=== PATIENT | female | born 1940 | race Caucasian/White ===

== ENCOUNTER 2017-10-16 12:15 | Emergency (ER) | payer MEDICARE ==
[~2017-10-16] VITALS: Ht 167.6 cm; Wt 85.7 kg
[~2017-10-16 12:15] MED LIST: ABILIFY5 MG PO; ACTONEL5 MG PO; ADULT ASPIRIN81 MG PO; ALENDRONATE SOD70 MG PO; AMBIEN10 MG PO; ASCORBIC ACID500 MG PO; ASPIR 8181 MG PO; Apixaban PO; CLINDAMYCIN HC150 MG PO; COENZYME Q1010 MG PO; DETROL LA2 MG PO; DETROL LA4 MG PO; DEXTROSE 50%-WA50 M1 IV; DHEA25 MG PO; DIPHENHYDR50 MG/1 M1 IV; ESIDRIX25 MG PO; ESTRADIOL1 MG PO; FAMOTIDINE20 MG PO; FEOSOL325 MG PO; HUMULIN R100 UNIT/2 SQ; HYDRALAZIN20 MG/1 ML IV; HYDROCHLOROTH12.5 MG PO; LASIX40 MG PO; LEVOTHYROXINE112 MCG PO; LISINOPRIL10 MG PO; MULTIVITAMINS1 EAC7 PO; Multivitamins/Minerals PO; ONDANSETRON4 MG/2 M1 IV; PANTOPRAZOLE SO40 MG PO; PRAVASTATIN SOD40 MG PO; PROGESTERONE100 MG PO; PROMETHAZINE HC25 M1 PO; PROTONIX40 MG/ML PO; QUETIAPINE FUMA25 MG PO; SEROQUEL25 MG PO; SERTRALINE HCL100 MG PO; SIMCOR 1,000-21 EACH PO; SIMVASTATIN20 MG PO; SODIUM BICARBO650 MG PO; TESSALON PERLE100 MG PO; TOLTERODINE TART2 MG PO; VITAMIN D1000 UNI1 PO; Z.0.DETROL LA4 MG PO; Z.0.ZOLOFT100 MG PO; Z.1.LISINOPRIL-HCT1 PO; ZOLOFT100 MG PO; ZOLPIDEM TARTRA10 MG PO; [UNRECOGNIZED DRUG - OTHER] PO; [UNRECOGNIZED DRUG - OTHER] PO; eliquis PO; metanx PO
[2017-10-16] MEDS ORDERED: CLINDAMYCIN 600MG/D5W 50ML 50 ML IV ONE (13:30)
[2017-10-16] MEDS ORDERED: ACETAMINOPHEN 325 MG TAB PO ONE (13:45)
[2017-10-16 14:14] LABS: BASOPHILS % 0.5 % (0.0-1.0); EOSINOPHILS # (AUTO) 0.2 (0.0-0.4); EOSINOPHILS % 2.2 % (0.0-6.0); HEMATOCRIT 39.9 % (34.2-44.1); HEMOGLOBIN 13.4 g/dL (12.0-16.0); LYMPHOCYTES # (AUTO) 1.5 (1.0-3.2); LYMPHOCYTES % 18.3 % (18.0-39.1); MEAN CORPUSCULAR HEMOGLOBIN 30.5 pg (28-32); MEAN CORPUSCULAR HGB CONC 33.6 g/dL (31-35); MEAN CORPUSCULAR VOLUME 90.9 fL (81-99); MONOCYTES % 12.3 % (4.4-11.3); NEUTROPHILS # (AUTO) 5.3 (2.1-6.9); NEUTROPHILS % 66.3 % (38.7-80.0); PLATELET COUNT 136 x10e3/uL (140-360); RED BLOOD COUNT 4.39 x10e6/uL (3.6-5.1); RED CELL DISTRIBUTION WIDTH 13.7 % (11.7-14.4)
[2017-10-16 14:35] LABS: ALBUMIN 3.7 g/dL (3.5-5.0); ALBUMIN/GLOBULIN RATIO 0.9 (0.8-2.0); ANION GAP 17.6 mmol/L (8-16); CALCIUM 9.3 mg/dL (8.4-10.2); CREATININE, SERUM 1.36 mg/dL (0.57-1.11); POTASSIUM 3.6 mmol/L (3.5-5.1)
[2017-10-16 14:47] VITALS: BP 145/88
== END 2017-10-16 15:02 | disposition home or self-care (01) ==
LOC: ER 12:15
DX: L02.416 Cutaneous abscess of left lower limb (principal); I10 Essential (primary) hypertension; E11.9 Type 2 diabetes mellitus without complications
CPT/HCPCS: 36415; 80053; 85025; 99283

== ENCOUNTER 2017-11-02 13:21 | Emergency (ER) | payer MEDICARE ==
[~2017-11-02] VITALS: Ht 167.6 cm; Wt 85.7 kg
--- OUTSIDE RECORDS SUMMARY | 2017-11-02 13:26 | XMS REPORT | Continuity of Care Document ---
Author Author [facility] Organization [facility] Address [address] [place] [address] Phone Unavailable Care Team Providers Care Master [place] Name Role Phone ALEX ANDRIA DO PCP Insurance Providers Guarantor Rosales Brock E Address [address] [place] [address] Payer Medicare A & B Policy Number [id number] Subscriber's Name Vijay Brock Relationship 18 Self / Same As Patient Effective Date 12 Advance Directives Directive Response Recorded Date/Time Does the patient have an advance directive? No 04/09/17 3:22pm If yes, is advance [facility]? No 04/09/17 3:22pm If not on file with [facility] will patient provide a copy? No 04/09/17 3:22pm Problems Medical Problem Onset Date Status Abrasion 12/22/2014 Acute CHF (congestive heart failure) 11/25/2014 Acute Cellulitis and abscess of lower extremity 11/25/2014 Acute Cellulitis, upper arm Unknown Fall 12/22/2014 Acute Hypokalemia 12/22/2014 Acute Renal insufficiency 12/22/2014 Acute Supracondyl fx femur-closed 12/22/2014 Acute Medications Current Home Medications Medication Dose Units Route Directions Days Qty Instructions Start Date Alendronate Sodium 70 Mg Tablet 70 Mg Oral Use As Directed Apixaban 5 Mg Tablet 5 Mg Oral Daily 14 Days 04/15/17 Aripiprazole (Abilify) 5 Mg Tablet 2 Mg Oral Daily Ascorbic Acid 500 Mg Tablet 500 Mg Oral Twice Daily With Meals 14 Days 04/15/17 Benzonatate (Tessalon Perle) 100 Mg Capsule 100 Mg Oral Every 8 Hours as needed for Cough 14 04/15/17 Cholecalciferol (Vitamin D3) (Vitamin D) 1,000 Unit Tablet 50,000 Units Oral Daily Dextrose (Dextrose 50%-Water Syringe) 50 Ml Inj 50 Ml Intraven As Needed as needed for Blood Sugar 14 Days 04/15/17 Diphenhydramine Hcl 50 Mg/1 Ml Vial 12.5 Mg Intraven Every 4 Hours as needed for Itching 14 Days 04/15/17 Eliquis 5 Mg Oral Daily Estradiol 1 Mg Tab 0.5 Mg Oral Daily 30 Tab Ferrous Sulfate (Feosol) 325 Mg Tablet 325 Mg Oral Twice Daily With Meals 14 Days 04/15/17 Hydralazine Hcl 20 Mg/1 Ml Vial 10 Mg Intraven Every 4 Hours as needed for High Blood Pressure 14 04/15/17 Hydrochlorothiazide 12.5 Mg Tablet 25 Mg Oral Daily Hydrochlorothiazide (Esidrix*) 25 Mg Tab 25 Mg Oral Daily 14 Days 04/15/17 Insulin Regular, Human (Humulin R) 100 Unit/1 Ml Vial 0 Unit Sub-Q Before Meals And At Bedtime 14 04/15/17 Levothyroxine Sodium 112 Mcg Tablet 112 Mcg Oral Daily@06 14 04/15/17 Lisinopril 10 Mg Tablet 20 Mg Oral Daily 14 04/15/17 Metanx 2.8 Mg Oral Daily Multivitamin (Multivitamins) 1 Each Capsule 1 Cap Oral Daily Multivitamins/Minerals 1 Tab 1 Oral Twice Daily With Meals 14 04/15/17 Ondansetron Hcl/Pf (Ondansetron Hcl 4 Mg/2 Ml Vial) 4 Mg/2 Ml Vial 4 Mg Intraven Every 4 Hours as needed for Nausea And Vomiting 14 Days Pantoprazole Sod (Protonix) 40 Mg/Ml Susp 40 Mg Oral Before Breakfast 14 Days 04/15/17 Prasterone (Dhea) (Dhea) 25 Mg Capsule 25 Mg Oral Daily Pravastatin Sodium 40 Mg Tablet 40 Mg Oral Daily Progesterone,Micronized (Progesterone) 100 Mg Capsule 100 Mg Oral Bedtime Promethazine Hcl 25 Mg Tablet 25 Mg Oral Every 12 Hours for Nausea And Vomiting Quetiapine Fumarate (Seroquel) 25 Mg Tablet 25 Mg Oral Daily 14 Days 04/15/17 Sertraline Hcl (Zoloft) 100 Mg Tablet 200 Mg Oral Daily 14 Days Simvastatin 20 Mg Tablet 20 Mg Oral Bedtime 14 Days 04/15/17 Sodium Bicarbonate 650 Mg Tablet 650 Mg Oral Twice A Day 14 Days Tolterodine Tartrate (Detrol La) 2 Mg Capcr 2 Mg Oral Twice A Day 14 Days 04/15/17 Ubidecarenone (Coenzyme Q10) 10 Mg Capsule 10 Mg Oral Daily Zolpidem Tartrate (Ambien) 10 Mg Tablet 10 Mg Oral Bedtime 14 Days 04/15/17 Past Home Medications Medication Directions Ordered Status Aspirin (Aspir 81) 81 Mg Tablet.dr, 81 Mg Oral Daily Discontinued Aspirin (Adult Aspirin) 81 Mg Tab.chew, 81 Mg Oral Every Morning Discontinued Clindamycin Hcl 150 Mg Capsule, 300 Mg Oral Every 8 Hours 12/06/14 Discontinued Famotidine 20 Mg Tab, 20 Mg Oral Bedtime Discontinued Furosemide (Lasix) 40 Mg Tablet, 40 Mg Oral Daily 12/06/14 Discontinued Levothyroxine Sodium 112 Mcg Tablet, 112 Mcg Oral Daily 12/06/14 Discontinued Lisinopril 10 Mg Tablet, 20 Mg Oral Daily Discontinued Lisinopril/Hydrochlorothiazide (Lisinopril-Hctz 20-12.5 Mg Tab) 1 Each Tablet, 1 Each Oral Every Morning Discontinued Niacin/Simvastatin (Simcor 1,000-20 Mg Tablet) 1 Each Tbmp.24hr, 1 Tab Oral Bedtime Discontinued Niacin/Simvastatin (Simcor 1,000-20 Mg Tablet) 1 Each Tbmp.24hr, 1 Each Oral Every Evening Discontinued Pantoprazole Sodium (Protonix) 40 Mg Tablet.dr, 40 Mg Oral Daily Discontinued Quetiapine Fumarate 25 Mg Tablet, 25 Mg Oral Daily Discontinued Risedronate Sodium (Actonel) 5 Mg Tablet, 5 Mg Oral Qweek Discontinued Risedronate Sodium (Actonel) 5 Mg Tablet, 5 Mg Oral Qweekly Discontinued Sertraline Hcl 100 Mg Tablet, 200 Mg Oral Daily Discontinued Sertraline Hcl (Zoloft) 100 Mg Tablet, 200 Mg Oral Daily Discontinued Tolterodine Tartrate (Detrol La) 4 Mg Cap.er.24h, 2 Mg Oral Twice A Day Discontinued Tolterodine Tartrate 2 Mg Tablet, 4 Mg Oral Daily Discontinued Tolterodine Tartrate (Detrol La) 4 Mg Cap.sr.24h, 4 Mg Oral Every Morning Discontinued Zolpidem Tartrate 10 Mg Tablet, 10 Mg Oral Bedtime as needed for Sleep Discontinued Family History Relationship Condition Age at Onset Recorded Date/Time 16 Daughter Family history of acute myocardial infarction 30's - 40 2014 3:28pm 32 Mother Family history of acute myocardial infarction Not Recorded 2014 3:28pm Social History Social History Problem Response Recorded Date/Time Onset Date Status Hx Psychiatric Problems No 04/09/2017 3:22pm Not Applicable Not Applicable Hx Eating Disorder No 04/09/2017 3:22pm Not Applicable Not Applicable Hx Substance Use Disorder No 03/12/2017 10:00pm Not Applicable Not Applicable Hx Depression Yes 03/12/2017 10:00pm Not Applicable Not Applicable Hx Alcohol Use No 03/12/2017 10:00pm Not Applicable Not Applicable Hx Substance Use Treatment No 03/12/2017 10:00pm Not Applicable Not Applicable Hx Physical Abuse No 03/12/2017 10:00pm Not Applicable Not Applicable Hospital Discharge Instructions No hospital discharge instruction information available. Plan of Care Discharge Date 10/16/17 3:02pm Disposition HOME, SELF-CARE Condition at Discharge Stable Instructions/Education Provided Wound Care (General) Prescriptions See Medication Section Referrals ANDRIA JOHNSON DO Order Date: Call for an appointment Address: [address] [place] [id number] Additional Instructions/Education Follow up with PCP in a couple of days Take medication as prescribed Return to ER if worsening of symptoms Functional Status No functional status information available. Allergies, Adverse Reactions, Alerts Allergen Type Severity Reaction Status Last Updated Codeine Allergy Unknown HIVES Active 10/16/17 Tramadol Allergy Intermediate Active 10/16/17 Immunizations No immunization information available. Vital Signs Acute Vital Signs Vital Response Date/Time Temperature (Fahrenheit) 97.9 degrees F (97.6 - 99.5) 04/15/2017 3:44pm Pulse Pulse Rate (adult) 86 bpm (60 - 90) 10/16/2017 2:47pm Respiratory Rate 18 bpm (12 - 24) 10/16/2017 2:47pm Blood Pressure 145/88 mm Hg 10/16/2017 2:47pm Height 5 ft 6 in 10/16/2017 12:48pm Weight 189 lb 10/16/2017 12:48pm Body Mass Index 30.5 kg/m^2 10/16/2017 12:48pm Results Laboratory Results Test Name Result Units Flags Reference Collection Date/Time Result Date/ Time Comments Random Vancomycin Level 16.7 ug/mL 03/17/2017 6:45am 03/17/2017 7: 37am Bedside Glucose 110 mg/dL 70-120 04/15/2017 3:31pm 04/15/2017 3:42pm Meter ID: [id number] Magnesium Level 1.9 MG/DL 1.3-2.1 04/13/2017 6:35am 04/13/2017 7:24am Iron Level 43 ug/dL L 50-170 04/12/2017 12:28pm 04/12/2017 12:58pm Total Iron Binding Capacity 213 ug/dL L 261-478 04/12/2017 12:28pm 04/12 12:58pm Percent Iron Saturation 20 % 15-50 04/12/2017 12:28pm 04/12/2017 12: 58pm Transferrin 152 mg/dL L 180-382 04/12/2017 12:28pm 04/12/2017 12:58pm B-Type Natriuretic Peptide 507.8 pg/mL H 0-100 04/15/2017 6:30am 2016 8:21am Vitamin B12 Level 290 pg/mL 213-816 04/12/2017 7:08am 04/12/2017 1: 39pm Folate 18.3 ng/mL H 7.0-15.4 04/12/2017 7:08am 04/12/2017 1:39pm Thyroid Stimulating Hormone (TSH) 5.382 uIU/mL H 0.350-4.940 04/10/2017 6 :41am 04/10/2017 8:07am Vancomycin Level Trough 11.6 ug/mL *H 5.0-10.0 04/14/2017 1:15pm 2016 2:06pm Results called to [DARION DAMON RN] at 1405 on 04/14/17 by Kailyn Beard. RB OK. White Blood Count 8.03 x10e3/uL 4.8-10.8 10/16/2017 1:01pm 10/16/2017 2 :16pm Red Blood Count 4.39 x10e6/uL 3.6-5.1 10/16/2017 1:01pm 10/16/2017 2: 16pm Hemoglobin 13.4 g/dL 12.0-16.0 10/16/2017 1:01pm 10/16/2017 2:16pm Hematocrit 39.9 % 34.2-44.1 10/16/2017 1:01pm 10/16/2017 2:16pm Mean Corpuscular Volume 90.9 fL 81-99 10/16/2017 1:01pm 10/16/2017 2: 16pm Mean Corpuscular Hemoglobin 30.5 pg 28-32 10/16/2017 1:01pm 10/16/2017 2:16pm Mean Corpuscular Hemoglobin Concent 33.6 g/dL 31-35 10/16/2017 1:01pm 10/16/2017 2:16pm Red Cell Distribution Width 13.7 % 11.7-14.4 10/16/2017 1:01pm 2017 2:16pm Platelet Count 136 x10e3/uL L 140-360 10/16/2017 1:01pm 10/16/2017 2: 16pm Neutrophils (%) (Auto) 66.3 % 38.7-80.0 10/16/2017 1:01pm 10/16/2017 2: 16pm Lymphocytes (%) (Auto) 18.3 % 18.0-39.1 10/16/2017 1:01pm 10/16/2017 2: 16pm Monocytes (%) (Auto) 12.3 % H 4.4-11.3 10/16/2017 1:01pm 10/16/2017 2: 16pm Eosinophils (%) (Auto) 2.2 % 0.0-6.0 10/16/2017 1:01pm 10/16/2017 2: 16pm Basophils (%) (Auto) 0.5 % 0.0-1.0 10/16/2017 1:01pm 10/16/2017 2:16pm IM GRANULOCYTES % 0.4 % 0.0-1.0 10/16/2017 1:01pm 10/16/2017 2:16pm Neutrophils # (Auto) 5.3 2.1-6.9 10/16/2017 1:01pm 10/16/2017 2:16pm Lymphocytes # (Auto) 1.5 1.0-3.2 10/16/2017 1:01pm 10/16/2017 2:16pm Monocytes # (Auto) 1.0 H 0.2-0.8 10/16/2017 1:01pm 10/16/2017 2:16pm Eosinophils # (Auto) 0.2 0.0-0.4 10/16/2017 1:01pm 10/16/2017 2:16pm Basophils # (Auto) 0.0 0.0-0.1 10/16/2017 1:01pm 10/16/2017 2:16pm Absolute Immature Granulocyte (auto 0.03 x10e3/uL 0-0.1 10/16/2017 1: 01pm 10/16/2017 2:16pm Sodium Level 139 mmol/L 136-145 10/16/2017 1:01pm 10/16/2017 2:36pm Potassium Level 3.6 mmol/L 3.5-5.1 10/16/2017 1:01pm 10/16/2017 2:36pm Chloride Level 108 mmol/L H 98-107 10/16/2017 1:01pm 10/16/2017 2:36pm Carbon Dioxide Level 17 mmol/L L 22-29 10/16/2017 1:01pm 10/16/2017 2: 36pm Anion Gap 17.6 mmol/L H 8-16 10/16/2017 1:01pm 10/16/2017 2:36pm Blood Urea Nitrogen 18 mg/dL 7-26 10/16/2017 1:01pm 10/16/2017 2:36pm Creatinine 1.36 mg/dL H 0.57-1.11 10/16/2017 1:01pm 10/16/2017 2:36pm BUN/Creatinine Ratio 13 6-25 10/16/2017 1:01pm 10/16/2017 2:36pm Estimat Glomerular Filtration Rate 38 ML/MIN L 60- 10/16/2017 1:01pm 09/2017 2:36pm Ranges were taken from the National Kidney Disease Education Program and the National Kid[employer] Foundation literature. Reference ranges: 60 or greater: Normal 16-59 (for 3 consecutive months): Chronic kidney disease 15 or less: Kidney failure Glucose Level 103 mg/dL 74-118 10/16/2017 1:01pm 10/16/2017 2:36pm Calcium Level 9.3 mg/dL 8.4-10.2 10/16/2017 1:01pm 10/16/2017 2:36pm Total Bilirubin 0.5 mg/dL 0.2-1.2 10/16/2017 1:01pm 10/16/2017 2:36pm Aspartate Amino Transf (AST/SGOT) 21 IU/L 5-34 10/16/2017 1:01pm 2017 2:36pm Alanine Aminotransferase (ALT/SGPT) 13 IU/L 0-55 10/16/2017 1:01pm 09/2017 2:36pm Total Protein 8.0 g/dL 6.5-8.1 10/16/2017 1:01pm 10/16/2017 2:36pm Albumin 3.7 g/dL 3.5-5.0 10/16/2017 1:01pm 10/16/2017 2:36pm Globulin 4.3 g/dL H 2.3-3.5 10/16/2017 1:01pm 10/16/2017 2:36pm Albumin/Globulin Ratio 0.9 0.8-2.0 10/16/2017 1:01pm 10/16/2017 2: 36pm Alkaline Phosphatase 71 IU/L 40-150 10/16/2017 1:01pm 10/16/2017 2: 36pm Microbiology Results Procedure Source Organism/Result Collection Date/Time Result Date/Time Result Status Blood Culture Blood NO GROWTH AFTER 5 DAYS, FINAL REPORT 04/09/2017 3:35pm 04/14/2017 3:42pm Final Procedures No procedure information available. Encounters Encounter Location Arrival/Admit Date Discharge/Depart Date Attending Provider Departed Emergency Room [facility] 10/16/17 12:15pm 10/16 3:02pm VEEAN MARX MD Discharged Inpatient [facility] 04/09/17 1:58pm 04/15/17 6:05pm ANDRIA LAWRENCE MD Discharged Inpatient [facility] 03/12/17 8:42pm 03/17/17 6:10pm ANDRIA LAWRENCE MD
--- NOTE | 2017-11-02 15:21 | Diagnostic Imaging Report ---
EXAMINATION: Head and cervical spine CT without contrast. HISTORY: Status post fall, head trauma, pain COMPARISON: Head and cervical spine CT on 12/22/2014 TECHNIQUE: Multidetector axial images were obtained without contrast from the foramen magnum to the vertex and through the cervical spine. The images were reconstructed using brain and bone algorithms. Thin section brain images were reformatted into coronal and sagittal planes. HEAD CT FINDINGS: Skull: No lytic or blastic lesions. Left forehead scalp swelling without underlying fractures. Parenchyma: Severe confluent periventricular, schuster radiata and centrum semiovale white matter hypodensities, most likely nonspecific chronic microvascular ischemic changes. No mass, hemorrhage or CT evidence of acute vascular insult. Brain volume: Normal for age. Ventricles: No hydrocephalus or displacement. Arteries: No density suggestive of thrombus. Dural sinuses: No abnormal density. Extra-axial spaces: No abnormal density. Foramen magnum: No mass, Chiari malformation, or basilar invagination. Sella: No obvious mass. Paranasal/mastoid sinuses: Imaged portions unremarkable. Incidental findings: Small left frontal convexity 6-mm dural calcification or small calcified meningioma without mass effect. CERVICAL SPINE CT FINDINGS: Alignment:Reversal of the cervical lordosis centered at C5.. Soft tissues: Normal. Vertebrae: Normal height and density. No acute fracture, infection or neoplasm. Degenerative changes: C1-C2: Prominent degenerative changes with subchondral cyst and sclerosis as well as marginal osteophyte. No stenoses. C2-C3: Bilateral facet arthrosis without canal or foraminal stenoses. C3-C4: Disc osteophyte, uncovertebral and facet arthrosis. Fusion of the right facets. Mild foraminal stenosis.. C4-C5: Disc osteophyte, uncovertebral and facet arthrosis. No significant stenoses. C5-C6: Disc osteophyte, uncovertebral and facet arthrosis. No significant stenosis. C6-C7: Interbody fusion with nonspecific lucencies in the expected location of the subchondral regions, which may be related to degenerative changes, unchanged from prior study dated 12/22/2014. No significant canal or foraminal stenosis. C7-T1: Facet arthrosis without stenosis. IMPRESSION: Head CT: 1. No acute post traumatic intracranial hemorrhage. 2. Left frontal scalp hematoma without underlying fractures. 3. Severe confluent chronic microvascular ischemic changes.. Cervical spine CT: 1. No acute fractures or dislocations. 2. Chronic degenerative changes as described. Note: Acute post traumatic spinal cord, vascular or ligamentous injury cannot adequately be assessed with CT. Signed by: Dr. Enriqueta Jean Baptiste M.D. on 11/02/2017 3:17 PM
--- NOTE | 2017-11-02 18:41 | Diagnostic Imaging Report ---
PROCEDURE: CHEST SINGLE (PORTABLE) COMPARISON: Patients [facility], DX, CHEST SINGLE (PORTABLE), 12/23/2014, 8:32. INDICATIONS: fell FINDINGS: LUNGS: No consolidation or mass. Vascular markings are normal. PLEURA: No effusions or pneumothorax. HEART \T\ MEDIASTINUM: The heart is mildly enlarged and stable. Aorta is ectatic. BONES \T\ SOFT TISSUES: No fracture or dislocation. Soft tissues are unremarkable. CONCLUSION: No acute traumatic pathology. Stable cardiomegaly. Dictated by: Conor Caba M.D. on 11/02/2017 at 18:41 Electronically approved by: Conor Caba M.D. on 11/02/2017 at 18:41
[2017-11-02 20:20] LABS: BASOPHILS # (AUTO) 0.1 (0.0-0.1); EOSINOPHILS # (AUTO) 0.2 (0.0-0.4); EOSINOPHILS % 2.7 % (0.0-6.0); HEMATOCRIT 38.1 % (34.2-44.1); HEMOGLOBIN 12.8 g/dL (12.0-16.0); LYMPHOCYTES # (AUTO) 1.8 (1.0-3.2); LYMPHOCYTES % 22.7 % (18.0-39.1); MEAN CORPUSCULAR HEMOGLOBIN 30.7 pg (28-32); MEAN CORPUSCULAR HGB CONC 33.6 g/dL (31-35); MEAN CORPUSCULAR VOLUME 91.4 fL (81-99); MONOCYTES # (AUTO) 1.4 (0.2-0.8); NEUTROPHILS # (AUTO) 4.5 (2.1-6.9); NEUTROPHILS % 56.2 % (38.7-80.0); PLATELET COUNT 143 x10e3/uL (140-360); RED BLOOD COUNT 4.17 x10e6/uL (3.6-5.1); RED CELL DISTRIBUTION WIDTH 14.2 % (11.7-14.4)
[2017-11-02 20:28] LABS: INR 1.04; PROTHROMBIN TIME 12.8 seconds (11.9-14.5)
[2017-11-02 20:29] LABS: PARTIAL THROMBOPLASTIN TIME 26.9 seconds (23.8-35.5)
[2017-11-02 20:37] LABS: ALBUMIN 3.3 g/dL (3.5-5.0); ALBUMIN/GLOBULIN RATIO 0.8 (0.8-2.0); ANION GAP 14.3 mmol/L (8-16); CREATININE, SERUM 1.17 mg/dL (0.57-1.11); MAGNESIUM 1.7 MG/DL (1.3-2.1); POTASSIUM 3.3 mmol/L (3.5-5.1)
[2017-11-02 20:43] LABS: CREATINE KINASE MB 1.5 ng/mL (0-5.0)
[2017-11-02 21:24] VITALS: BP 149/83
== END 2017-11-02 21:44 | disposition home or self-care (01) ==
LOC: ER 13:29
DX: S06.890A Other specified intracranial injury without loss of consciousness, initial encounter (principal); W01.0XXA Fall on same level from slipping, tripping and stumbling without subsequent striking against object, initial encounter; Y92.008 Other place in unspecified non-institutional (private) residence as the place of occurrence of the external cause
CPT/HCPCS: 36415; 70450; 71045; 72125; 80053; 82550; 82553; 83735; 83880; 84484; 85025; 85610; 85730; 93005; 99284

== ENCOUNTER 2018-01-01 10:31 | Emergency (ER) | payer MEDICARE ==
[~2018-01-01] VITALS: Ht 167.6 cm; Wt 85.7 kg
--- OUTSIDE RECORDS SUMMARY | 2018-01-01 10:35 | XMS REPORT ---
Author Author [facility] Address Unknown Phone Unavailable Care Team Providers Care Hand Packager Name Role Phone CALLUM VARGAS Unavailable Unavailable Problems This patient has no known problems. Allergies, Adverse Reactions, Alerts This patient has no known allergies or adverse reactions. Medications This patient has no known medications. Results Test Description Test Time Test Comments Text Results Atomic Results Result Comments CHEST SINGLE (PORTABLE) [place] [address] Patient Name: VIJAY BROCK MR #: [id number] : 1940 Age/Sex: 77/F Req #: [id number] Adm Physician: Ordered by: MP RIDLEY ASSEMBLER [employer]ER Report #: [id number] Location: ER Room/Bed: Procedure: [id number] DX/CHEST SINGLE (PORTABLE) Exam Date: 11/02/17 Exam Time: 1820 REPORT STATUS: Signed PROCEDURE: CHEST SINGLE (PORTABLE) COMPARISON: [facility], , CHEST SINGLE (PORTABLE), 12/23/2014, 8:32. INDICATIONS: fell FINDINGS: LUNGS: No consolidation or mass. Vascular markings are normal. PLEURA: No effusions or pneumothorax. HEART T MEDIASTINUM: The heart is mildly enlarged and stable. Aorta is ectatic. BONES T SOFT TISSUES: No fracture or dislocation. Soft tissues are unremarkable. CONCLUSION: No acute traumatic pathology. Stable cardiomegaly. Dictated by: Richie Caba M.D. on 11/02/2017 at 18:41 Electronically approved by: Richie Caba M.D. on 11/02/2017 at 18:41 Dictated By: RICHIE CABA MD 40 Transcribed By: SEBASTIEN on 11/02/171840 COPY TO: MP RIDLEY NP CT CERVICAL SPINE WO [place] [address] Patient Name: VIJAY BROCK MR #: [id number] : 1940 Age/Sex: 77/F Req #: [id number] Adm Physician: Ordered by: CALLUM VARGAS MD Report #: [id number] Location: ER Room/Bed: Procedure: [id number] CT/CT CERVICAL SPINE WO Exam Date: 11/02/17 Exam Time: 1340 REPORT STATUS: Signed EXAMINATION: Head and cervical spine CT without contrast. HISTORY: Status post fall, head trauma, pain COMPARISON: Head and cervical spine CT on 12/22/2014 TECHNIQUE: Multidetector axial images were obtained without contrast from the foramen magnum to the vertex and through the cervical spine. The images were reconstructed using brain and bone algorithms. Thin section brain images were reformatted into coronal and sagittal planes. HEAD CT FINDINGS: Skull: No lytic or blastic lesions. Left forehead scalp swelling without underlying fractures. Parenchyma: Severe confluent periventricular, schuster radiata and centrum semiovale white matter hypodensities, most likely nonspecific chronic microvascular ischemic changes. No mass, hemorrhage or CT evidence of acute vascular insult. Brain volume: Normal for age. Ventricles: No hydrocephalus or displacement. Arteries: No density suggestive of thrombus. Dural sinuses: No abnormal density. Extra-axial spaces: No abnormal density. Foramen magnum: No mass, Chiari malformation, or basilar invagination. Sella: No obvious mass. Paranasal/mastoid sinuses: Imaged portions unremarkable. Incidental findings: Small left frontal convexity 6-mm dural calcification or small calcified meningioma without mass effect. CERVICAL SPINE CT FINDINGS: Alignment:Reversal of the cervical lordosis centered at C5.. Soft tissues: Normal. Vertebrae: Normal height and density. No acute fracture , infection or neoplasm. Degenerative changes: C1-C2: Prominent degenerative changes with subchondral cyst and sclerosis as well as marginal osteophyte. No stenoses. C2-C3: Bilateral facet arthrosis without canal or foraminal stenoses. C3-C4: Disc osteophyte, uncovertebral and facet arthrosis. Fusion of the right facets. Mild foraminal stenosis.. C4-C5: Disc osteophyte, uncovertebral and facet arthrosis. No significant stenoses. C5-C6: Disc osteophyte, uncovertebral and facet arthrosis. No significant stenosis. C6-C7: Interbody fusion with nonspecific lucencies in the expected location of the subchondral regions, which may be related to degenerative changes, unchanged from prior study dated 12/22/2014. No significant canal or foraminal stenosis. C7-T1: Facet arthrosis without stenosis. IMPRESSION: Head CT: 1. No acute post traumatic intracranial hemorrhage. 2. Left frontal scalp hematoma without underlying fractures. 3. Severe confluent chronic microvascular ischemic changes.. Cervical spine CT: 1. No acute fractures or dislocations. 2. Chronic degenerative changes as described. Note: Acute post traumatic spinal cord, vascular or ligamentous injury cannot adequately be assessed with CT. Signed by: Dr. Enriqueta Jean Baptiste M.D. on 11/02/2017 3:17 PM Dictated By: ENRIQUETA JEAN BAPTISTE MD [id number] Transcribed By: MELBA on 11/02/17 6503 COPY TO: CALLUM VARGAS MD CT BRAIN WO [place] [address] Patient Name: VIJAY BROCK MR #: [id number] : 1940 Age/Sex: 77/F Req #: [id number] Adm Physician: Ordered by: CALLUM VARGAS MD Report #: [id number] Location: ER Room/Bed: Procedure: [id number] CT/CT BRAIN WO Exam Date: 11/02/17 Exam Time: 1340 REPORT STATUS: Signed EXAMINATION: Head and cervical spine CT without contrast. HISTORY: Status post fall, head trauma, pain COMPARISON: Head and cervical spine CT on 12/22/2014 TECHNIQUE: Multidetector axial images were obtained without contrast from the foramen magnum to the vertex and through the cervical spine. The images were reconstructed using brain and bone algorithms. Thin section brain images were reformatted into coronal and sagittal planes. HEAD CT FINDINGS: Skull: No lytic or blastic lesions. Left forehead scalp swelling without underlying fractures. Parenchyma: Severe confluent periventricular, schuster radiata and centrum semiovale white matter hypodensities, most likely nonspecific chronic microvascular ischemic changes. No mass, hemorrhage or CT evidence of acute vascular insult. Brain volume: Normal for age. Ventricles: No hydrocephalus or displacement. Arteries: No density suggestive of thrombus. Dural sinuses: No abnormal density. Extra-axial spaces : No abnormal density. Foramen magnum: No mass, Chiari malformation, or basilar invagination. Sella: No obvious mass. Paranasal/ mastoid sinuses: Imaged portions unremarkable. Incidental findings: Small left frontal convexity 6-mm dural calcification or small calcified meningioma without mass effect. CERVICAL SPINE CT FINDINGS: Alignment:Reversal of the cervical lordosis centered at C5.. Soft tissues: Normal. Vertebrae: Normal height and density. No acute fracture, infection or neoplasm. Degenerative changes: C1-C2: Prominent degenerative changes with subchondral cyst and sclerosis as well as marginal osteophyte. No stenoses. C2-C3: Bilateral facet arthrosis without canal or foraminal stenoses. C3-C4: Disc osteophyte, uncovertebral and facet arthrosis. Fusion of the right facets. Mild foraminal stenosis.. C4-C5: Disc osteophyte, uncovertebral and facet arthrosis. No significant stenoses. C5-C6: Disc osteophyte, uncovertebral and facet arthrosis. No significant stenosis. C6-C7: Interbody fusion with nonspecific lucencies in the expected location of the subchondral regions, which may be related to degenerative changes, unchanged from prior study dated 12/22/2014. No significant canal or foraminal stenosis. C7-T1: Facet arthrosis without stenosis. IMPRESSION: Head CT: 1. No acute post traumatic intracranial hemorrhage. 2. Left frontal scalp hematoma without underlying fractures. 3. Severe confluent chronic microvascular ischemic changes.. Cervical spine CT: 1. No acute fractures or dislocations. 2. Chronic degenerative changes as described. Note: Acute post traumatic spinal cord, vascular or ligamentous injury cannot adequately be assessed with CT. Signed by: Dr. Enriqueta Jean Baptiste M.D. on 11/02/2017 3:17 PM Dictated By: ENRIQUETA JEAN BAPTISTE MD [id number] Transcribed By: MELBA on 11/02/17 0231 COPY TO: CALLUM VARGAS MD
--- OUTSIDE RECORDS SUMMARY | 2018-01-01 10:35 | XMS REPORT | Continuity of Care Document ---
Author Author [facility] Organization [facility] Address [address] [place] [address] Phone Unavailable Care Team Providers Care Extension Service Specialist Name Role Phone ANDRIA JOHNSON DO PCP Insurance Providers Guarantor Vijay Brock Address [address] [place] [address] Email [email or web address] Payer [facility] Policy Number [id number] Subscriber's Name Vijay Brock Relationship 18 Self / Same As Patient Effective Date 17 Payer Medicare A & B Policy Number [id number] Subscriber's Name Vijay Brock Relationship 18 Self / Same As Patient Effective Date 12 Advance Directives Directive Response Recorded Date/Time Does the patient have an advance directive? No 04/09/17 3:22pm If yes, is advance directive [facility]? No 04/09/17 3:22pm If not on file with [facility] will patient provide a copy? No 04/09/17 3:22pm Do you have a Directive to Physician? No 11/02/17 2:24pm Do you have a Medical Power of Mohs Surgeon/General Dermatologist? No 11/02/17 2:24pm Do you have an out of hospital Do Not Resuscitate Order? No 11/02/17 2:24pm Do you have any special needs we should be aware of? No 11/02/17 2:24pm Do you have a support person here with you today? Yes 11/02/17 2:24pm Did patient receive Notice of Privacy Practices? Yes 11/02/17 2:24pm Did patient receive patient rights and responsibilities? Yes 11/02/17 2:24pm Problems Medical Problem Onset Date Status Abrasion [...] 8 Hours as needed for Cough 14 Days 04/15/17 Cholecalciferol (Vitamin D3) (Vitamin D) 1,000 [...] as needed for High Blood Pressure 14 Days 04/15/17 Hydrochlorothiazide 12.5 Mg Tablet 25 Mg Oral Daily Hydrochlorothiazide (Esidrix*) 25 Mg Tab 25 Mg Oral Daily 14 Days 04/15/17 Insulin Regular, Human (Humulin R) 100 Unit/1 Ml Vial 0 Unit Sub-Q Before Meals And At Bedtime 14 Days 04/15/17 Levothyroxine Sodium 112 Mcg Tablet 112 Mcg Oral Daily@06 14 Days 04/15/17 Lisinopril 10 Mg Tablet 20 Mg Oral Daily 14 Days 04/15/17 Metanx 2.8 Mg Oral Daily Multivitamin (Multivitamins) 1 Each Capsule 1 Cap Oral Daily Multivitamins/Minerals 1 Tab 1 Oral Twice Daily With Meals 14 Days 04/15/17 Ondansetron Hcl/Pf (Ondansetron Hcl 4 Mg/2 [...] No 03/12/2017 10:00pm Not Applicable Not Applicable Smoking Status Start Date Stop Date Never Smoker Hospital Discharge Instructions No hospital discharge instruction information available. Plan of Care Discharge Date 11/02/17 9:44pm Disposition HOME, SELF-CARE Condition at Discharge Stable Instructions/Education Provided Concussion/Head Injury - Adult Prescriptions See Medication Section Referrals ANDRIA JOHNSON DO Order Date: Call for an appointment Address: [address] [place], [place] [id number] DARRELL BANKS MD Address: [address] [place] [address] Additional Instructions/Education 1. follow up with your doctor and / neurologist in 1-2 days without fail 2. return to ed as needed 3. over the counter tylenol and motrin as needed for pain Functional Status No functional status information available. Allergies, Adverse Reactions, Alerts Allergen Type Severity Reaction Status Last Updated Codeine Allergy Unknown HIVES Active 10/16/17 Tramadol Allergy Intermediate Active 10/16/17 Immunizations No immunization information available. Vital Signs Acute Vital Signs Vital Response Date/Time Temperature (Fahrenheit) 98.4 degrees F (97.6 - 99.5) 11/02/2017 9:24pm Pulse Pulse Rate (adult) 97 bpm (60 - 90) 11/02/2017 9:24pm Respiratory Rate 18 bpm (12 - 24) 11/02/2017 9:24pm Blood Pressure 149/83 mm Hg 11/02/2017 9:24pm Height 5 ft 6 in 11/02/2017 1:24pm Weight 189 lb 11/02/2017 1:24pm Body Mass Index 30.5 kg/m^2 11/02/2017 1:24pm Results Laboratory Results Test Name Result Units Flags Reference Collection Date/Time Result Date/ Time Comments Random Vancomycin Level 16.7 ug/mL 03/17/2017 6:45am 03/17/2017 7: 37am Bedside Glucose 110 mg/dL 70-120 04/15/2017 3:31pm 04/15/2017 3:42pm Meter ID: [id number] Iron Level 43 ug/dL L 50-170 04/12/2017 12:28pm 04/12/2017 12:58pm Total Iron Binding Capacity 213 ug/dL L 261-478 04/12/2017 12:28pm 04/12 12:58pm Percent Iron Saturation 20 % 15-50 04/12/2017 12:28pm 04/12/2017 12: 58pm Transferrin 152 mg/dL L 180-382 04/12/2017 12:28pm 04/12/2017 12:58pm Vitamin B12 Level 290 pg/mL 213-816 04/12/2017 7:08am 04/12/2017 1: 39pm Folate 18.3 ng/mL H 7.0-15.4 04/12/2017 7:08am 04/12/2017 1:39pm Thyroid Stimulating Hormone (TSH) 5.382 uIU/mL H 0.350-4.940 04/10/2017 6 :41am 04/10/2017 8:07am Vancomycin Level Trough 11.6 ug/mL *H 5.0-10.0 04/14/2017 1:15pm 2016 2:06pm Results called to [DARION DAMON RN] at 1405 on 04/14/17 by Kailyn Beard. RB OK. White Blood Count 8.05 x10e3/uL 4.8-10.8 11/02/2017 8:03pm 11/02/2017 8 :21pm Red Blood Count 4.17 x10e6/uL 3.6-5.1 11/02/2017 8:03pm 11/02/2017 8: 21pm Hemoglobin 12.8 g/dL 12.0-16.0 11/02/2017 8:03pm 11/02/2017 8:21pm Hematocrit 38.1 % 34.2-44.1 11/02/2017 8:03pm 11/02/2017 8:21pm Mean Corpuscular Volume 91.4 fL 81-99 11/02/2017 8:03pm 11/02/2017 8: 21pm Mean Corpuscular Hemoglobin 30.7 pg 28-32 11/02/2017 8:03pm 11/02/2017 8:21pm Mean Corpuscular Hemoglobin Concent 33.6 g/dL 31-35 11/02/2017 8:03pm 11/02/2017 8:21pm Red Cell Distribution Width 14.2 % 11.7-14.4 11/02/2017 8:03pm 2017 8:21pm Platelet Count 143 x10e3/uL 140-360 11/02/2017 8:03pm 11/02/2017 8: 21pm Neutrophils (%) (Auto) 56.2 % 38.7-80.0 11/02/2017 8:03pm 11/02/2017 8: 21pm Lymphocytes (%) (Auto) 22.7 % 18.0-39.1 11/02/2017 8:03pm 11/02/2017 8: 21pm Monocytes (%) (Auto) 17.0 % H 4.4-11.3 11/02/2017 8:03pm 11/02/2017 8: 21pm Eosinophils (%) (Auto) 2.7 % 0.0-6.0 11/02/2017 8:03pm 11/02/2017 8: 21pm Basophils (%) (Auto) 1.0 % 0.0-1.0 11/02/2017 8:03pm 11/02/2017 8:21pm IM GRANULOCYTES % 0.4 % 0.0-1.0 11/02/2017 8:03pm 11/02/2017 8:21pm Neutrophils # (Auto) 4.5 2.1-6.9 11/02/2017 8:03pm 11/02/2017 8:21pm Lymphocytes # (Auto) 1.8 1.0-3.2 11/02/2017 8:03pm 11/02/2017 8:21pm Monocytes # (Auto) 1.4 H 0.2-0.8 11/02/2017 8:03pm 11/02/2017 8:21pm Eosinophils # (Auto) 0.2 0.0-0.4 11/02/2017 8:03pm 11/02/2017 8:21pm Basophils # (Auto) 0.1 0.0-0.1 11/02/2017 8:03pm 11/02/2017 8:21pm Absolute Immature Granulocyte (auto 0.03 x10e3/uL 0-0.1 11/02/2017 8: 03pm 11/02/2017 8:21pm Prothrombin Time 12.8 seconds 11.9-14.5 11/02/2017 8:03pm 11/02/2017 8: 29pm Prothromb Time International Ratio 1.04 11/02/2017 8:03pm 2017 8:29pm Oral Anticoagulant Therapy INR Values: 1. Low Intensity Therapy 1.5 - 2.0 2. Moderate Intensity Therapy 2.0 - 3.0 3. High Intensity Therapy(1) 2.5 - 3.5 4. High Intensity Therapy(2) 3.0 - 4.0 5. Panic Value INR > 5.0 Activated Partial Thromboplast Time 26.9 seconds 23.8-35.5 11/02/2017 8: 03pm 11/02/2017 8:29pm Sodium Level 138 mmol/L 136-145 11/02/2017 8:03pm 11/02/2017 8:37pm Potassium Level 3.3 mmol/L L 3.5-5.1 11/02/2017 8:03pm 11/02/2017 8: 37pm Chloride Level 107 mmol/L 98-107 11/02/2017 8:03pm 11/02/2017 8:37pm Carbon Dioxide Level 20 mmol/L L 22-29 11/02/2017 8:03pm 11/02/2017 8: 37pm Anion Gap 14.3 mmol/L 8-16 11/02/2017 8:03pm 11/02/2017 8:37pm Blood Urea Nitrogen 10 mg/dL 7-11/02/2017 8:03pm 11/02/2017 8:37pm Creatinine 1.17 mg/dL H 0.57-1.11 11/02/2017 8:03pm 11/02/2017 8:37pm BUN/Creatinine Ratio 9 6-25 11/02/2017 8:03pm 11/02/2017 8:37pm Estimat Glomerular Filtration Rate 45 ML/MIN L 60- 11/02/2017 8:03pm 8:37pm Ranges were taken from the National Kidney Disease Education Program and the National Kidney Foundation literature. Reference ranges: 60 or greater: Normal 16-59 (for 3 consecutive months): Chronic kidney disease 15 or less: Kidney failure Glucose Level 133 mg/dL H 74-118 11/02/2017 8:03pm 11/02/2017 8:37pm Calcium Level 9.0 mg/dL 8.4-10.2 11/02/2017 8:03pm 11/02/2017 8:37pm Magnesium Level 1.7 MG/DL 1.3-2.1 11/02/2017 8:03pm 11/02/2017 8:37pm Total Bilirubin 0.3 mg/dL 0.2-1.2 11/02/2017 8:03pm 11/02/2017 8:37pm Aspartate Amino Transf (AST/SGOT) 26 IU/L 5-34 11/02/2017 8:03pm 2017 8:37pm Alanine Aminotransferase (ALT/SGPT) 18 IU/L 0-55 11/02/2017 8:03pm 8:37pm Total Protein 7.4 g/dL 6.5-8.1 11/02/2017 8:03pm 11/02/2017 8:37pm Albumin 3.3 g/dL L 3.5-5.0 11/02/2017 8:03pm 11/02/2017 8:37pm Globulin 4.1 g/dL H 2.3-3.5 11/02/2017 8:03pm 11/02/2017 8:37pm Albumin/Globulin Ratio 0.8 0.8-2.0 11/02/2017 8:03pm 11/02/2017 8: 37pm Alkaline Phosphatase 68 IU/L 40-150 11/02/2017 8:03pm 11/02/2017 8: 37pm B-Type Natriuretic Peptide 157.6 pg/mL H 0-100 11/02/2017 8:03pm 2017 8:44pm Creatine Kinase 48 IU/L 29-168 11/02/2017 8:03pm 11/02/2017 8:37pm Creatine Kinase MB 1.50 ng/mL 0-5.0 11/02/2017 8:03pm 11/02/2017 8: 44pm Troponin I 0.031 ng/mL 0-0.300 11/02/2017 8:03pm 11/02/2017 8:44pm Microbiology Results Procedure Source Organism/Result Collection Date/Time Result Date/Time Result Status Blood Culture Blood NO GROWTH AFTER 5 DAYS, FINAL REPORT 04/09/2017 3:35pm 04/14/2017 3:42pm Final Procedures Procedure Status Date Provider(s) Computed tomography of cervical spine without contrast Active 11/02/17 CALLUM VARGAS MD Computed tomography of brain without radiopaque contrast Active 11/02/17 CALLUM VARGAS MD Encounters Encounter Location Arrival/Admit Date Discharge/Depart Date Attending Provider Departed Emergency Room [facility] 11/02/17 1:29pm 9:44pm CALLUM VARGAS MD Departed Emergency Room [facility] 10/16/17 12:15pm 10/16 3:02pm VEENA MARX MD Discharged Inpatient [facility] 04/09/17 1:58pm 04/15/17 6:05pm ANDRIA LAWRENCE MD Discharged Inpatient [facility] 03/12/17 8:42pm 03/17/17 6:10pm ANDRIA LAWRENCE MD
[2018-01-01] MEDS ORDERED: CLINDAMYCIN PHOS 600 MG/ 4 ML VIAL IM ONE (11:00)
[2018-01-01] MEDS ORDERED: TETANUS/DIPHTHERIA TOX ADULT 0.5 ML SYR IM ONE (11:00)
--- NOTE | 2018-01-01 12:48 | Diagnostic Imaging Report ---
PROCEDURE:X-RAY LEFT ELBOW, COMPLETE COMPARISON:None. INDICATIONS:FALL, ELBOW PAIN FINDINGS: Decreased mineralization, which limits evaluation of bony structures. No acute displaced fracture or dislocation. No lytic or blastic lesions. No posterior fat pad elevation. Joint spaces are relatively well-preserved. Soft tissues are grossly unremarkable. CONCLUSION: Decreased pneumatization, which limits evaluation of bony structures. No acute, displaced fractures or dislocations, within the limitations of the study. Correlate clinically for need for further imaging. Vernon De Guzman M.D. Dictated by: Vernon De Guzman M.D. on 01/01/2018 at 12:50 Electronically approved by: Vernon De Guzman M.D. on 01/01/2018 at 12:50
--- NOTE | 2018-01-01 12:50 | Diagnostic Imaging Report ---
PROCEDURE:HIP LEFT 2-3 VW (+/- PELVIS) COMPARISON:None. INDICATIONS:FALL FINDINGS: BONES:Decreased mineralization, which limits evaluation of bony structures. No acute, displaced fractures or dislocations. No lytic or blastic lesions. Orthopedic hardware is partially visualized in the mid femur. Degenerative changes in the lower low cervical spine, with leftward curvature. Mild degenerative changes in bilateral hip joints and sacroiliac joints. SOFT TISSUES:Nonobstructive bowel gas pattern. Pelvic phleboliths.. OTHER:Round-shaped density projecting over the right iliac crest likely represents an injection granuloma in the soft tissues.. CONCLUSION: Decreased mineralization, which limits evaluation of bony structures. No acute, displaced fracture or dislocation, within the limitations of the study. Correlate clinically for need for further imaging. Vernon De Guzman M.D. Dictated by: Vernon De Guzman M.D. on 01/01/2018 at 12:52 Electronically approved by: Vernon De Guzman M.D. on 01/01/2018 at 12:52
== END 2018-01-01 14:15 | disposition home or self-care (01) ==
LOC: ER 10:31
DX: L03.114 Cellulitis of left upper limb (principal); S51.001A Unspecified open wound of right elbow, initial encounter; W17.89XA Other fall from one level to another, initial encounter; Y93.01 Activity, walking, marching and hiking; Y92.480 Sidewalk as the place of occurrence of the external cause; I10 Essential (primary) hypertension; E03.9 Hypothyroidism, unspecified
CPT/HCPCS: 90714; 99284

== ENCOUNTER 2018-01-04 17:23 | Inpatient (IN) | payer MEDICARE ==
[~2018-01-04] VITALS: Ht 170.2 cm; Wt 76.7 kg
[~2018-01-04 17:23] MED LIST changes: -BACTRIM DS TAB1 EACH PO; -CIPRO500 MG PO; -NORVASC5 MG PO; -SYNTHROID125 MCG PO
[2018-01-04 18:16] VITALS: BP 210/119
[2018-01-04] MEDS ORDERED: BENZONATATE 100 MG CAP PO PRN (18:30)
[2018-01-04] MEDS ORDERED: ALENDRONATE SODIUM 70 MG TAB PO SCH (18:30)
[2018-01-04] MEDS ORDERED: DEXTROSE 50% SYRINGE 50 ML IV PRN (18:30)
[2018-01-04] MEDS ORDERED: ONDANSETRON HCL INJ 2 MG/ML VIAL IV PRN (18:30)
[2018-01-04] MEDS: HYDRALAZINE HCL 20 MG/ML VIAL IV PRN (18:40)
[2018-01-04] MEDS ORDERED: ONDANSETRON HCL 4 MG ORAL DISINTEGRATING TAB SL PRN (18:45)
[2018-01-04 20:00] VITALS: BP 171/81
[2018-01-04] MEDS ORDERED: PROGESTERONE PO SCH (21:00)
[2018-01-04] MEDS ORDERED: PROGESTERONE MICRONIZED 100 MG PO SCH (21:00)
[2018-01-04] MEDS: INSULIN REGULAR, HUMAN 100 UNIT/1 ML 3ML VIAL SQ SCH (21:00)
[2018-01-04] MEDS: ZOLPIDEM TARTRATE 10 MG TAB PO SCH (22:06)
[2018-01-04] MEDS: PROMETHAZINE HCL 25 MG TAB PO SCH (22:06)
[2018-01-04] MEDS: SIMVASTATIN 20 MG TAB PO SCH (22:07)
[2018-01-04 22:09] LABS: BASOPHILS # (AUTO) 0.1 (0.0-0.1); BASOPHILS % 0.6 % (0.0-1.0); EOSINOPHILS # (AUTO) 0.8 (0.0-0.4); EOSINOPHILS % 8.9 % (0.0-6.0); HEMATOCRIT 34.9 % (34.2-44.1); HEMOGLOBIN 11.8 g/dL (12.0-16.0); LYMPHOCYTES # (AUTO) 2.3 (1.0-3.2); LYMPHOCYTES % 26.1 % (18.0-39.1); MEAN CORPUSCULAR HEMOGLOBIN 30.6 pg (28-32); MEAN CORPUSCULAR HGB CONC 33.8 g/dL (31-35); MEAN CORPUSCULAR VOLUME 90.6 fL (81-99); MONOCYTES # (AUTO) 1.3 (0.2-0.8); MONOCYTES % 15.1 % (4.4-11.3); NEUTROPHILS # (AUTO) 4.2 (2.1-6.9); NEUTROPHILS % 49.2 % (38.7-80.0); PLATELET COUNT 103 x10e3/uL (140-360); RED BLOOD COUNT 3.85 x10e6/uL (3.6-5.1); RED CELL DISTRIBUTION WIDTH 14.2 % (11.7-14.4)
[2018-01-04] MEDS ORDERED: ACETAMINOPHEN 325 MG TAB PO PRN (22:15)
[2018-01-04 22:24] VITALS: BP 171/81
[2018-01-04 22:31] LABS: ALBUMIN 3.3 g/dL (3.5-5.0); ALBUMIN/GLOBULIN RATIO 0.9 (0.8-2.0); ANION GAP 12.3 mmol/L (8-16); CALCIUM 8.9 mg/dL (8.4-10.2); CREATININE, SERUM 1.29 mg/dL (0.57-1.11); POTASSIUM 3.3 mmol/L (3.5-5.1)
[2018-01-04 22:50] LABS: ERYTHROCYTE SEDIMENTATION RATE 40 mm/hr (0-20)
[2018-01-05] VITALS (8 sets, daily range): BP systolic 124–192; BP diastolic 59–93
[2018-01-05] MEDS: DIPHENHYDRAMINE HCL INJ 50 MG/ML VIAL IV PRN ×2 (00:09→22:00)
[2018-01-05] MEDS: HYDRALAZINE HCL 20 MG/ML VIAL IV PRN (00:23)
[2018-01-05] MEDS: LEVOTHYROXINE SODIUM 112 MCG TAB PO SCH (05:09)
[2018-01-05] MEDS: INSULIN REGULAR, HUMAN 100 UNIT/1 ML 3ML VIAL SQ SCH ×3 (07:30→16:30)
[2018-01-05 07:42] LABS: BASOPHILS # (AUTO) 0.1 (0.0-0.1); BASOPHILS % 0.8 % (0.0-1.0); EOSINOPHILS # (AUTO) 0.7 (0.0-0.4); EOSINOPHILS % 10.3 % (0.0-6.0); HEMATOCRIT 32.4 % (34.2-44.1); HEMOGLOBIN 10.9 g/dL (12.0-16.0); LYMPHOCYTES # (AUTO) 1.6 (1.0-3.2); LYMPHOCYTES % 24.3 % (18.0-39.1); MEAN CORPUSCULAR HEMOGLOBIN 30.4 pg (28-32); MEAN CORPUSCULAR HGB CONC 33.6 g/dL (31-35); MEAN CORPUSCULAR VOLUME 90.3 fL (81-99); MONOCYTES # (AUTO) 1.1 (0.2-0.8); NEUTROPHILS # (AUTO) 3.1 (2.1-6.9); NEUTROPHILS % 47.1 % (38.7-80.0); PLATELET COUNT 93 x10e3/uL (140-360); RED BLOOD COUNT 3.59 x10e6/uL (3.6-5.1); RED CELL DISTRIBUTION WIDTH 14.2 % (11.7-14.4)
[2018-01-05] MEDS: PANTOPRAZOLE SOD 40 MG TABEC PO SCH (07:58)
[2018-01-05] MEDS: FERROUS SULFATE 325 MG TAB PO SCH ×2 (07:58→17:20)
[2018-01-05] MEDS ORDERED: [UNRECOGNIZED DRUG - OTHER] PO SCH (08:00)
[2018-01-05] MEDS: ASCORBIC ACID 500 MG TAB PO SCH ×2 (08:00→17:18)
[2018-01-05] MEDS ORDERED: MULTIVITAMINS PO SCH (08:00)
[2018-01-05] MEDS ORDERED: MINERALS PO SCH (08:00)
[2018-01-05 08:03] LABS: ALBUMIN/GLOBULIN RATIO 0.9 (0.8-2.0); ANION GAP 10.4 mmol/L (8-16); CALCIUM 8.9 mg/dL (8.4-10.2); CREATININE, SERUM 1.13 mg/dL (0.57-1.11); POTASSIUM 3.4 mmol/L (3.5-5.1)
[2018-01-05] MEDS: VANCOMYCIN 1GM/NS 250 ML 250 ML IV SCH (08:05)
[2018-01-05] MEDS: TOLTERODINE TARTRATE 2 MG CAPCR PO SCH ×2 (08:05→17:20)
[2018-01-05] MEDS: CEFEPIME HCL 1 GM VIAL IV SCH (08:05)
[2018-01-05] MEDS: LISINOPRIL 10 MG TAB PO SCH (08:05)
[2018-01-05] MEDS: ESTRADIOL 1 MG TAB PO SCH (08:05)
[2018-01-05] MEDS: HYDROCHLOROTHIAZIDE 25 MG TAB PO SCH (08:05)
[2018-01-05] MEDS: SERTRALINE HCL 100 MG TAB PO SCH (08:05)
[2018-01-05] MEDS: MULTIVITAMINS/MINERALS TAB PO SCH (08:05)
[2018-01-05] MEDS: APIXABAN 5 MG TABLET PO SCH (08:05)
[2018-01-05] MEDS: SODIUM BICARBONATE 650 MG TAB PO SCH ×2 (08:05→17:18)
[2018-01-05] MEDS: QUETIAPINE FUMARATE 25 MG TAB PO SCH (08:05)
[2018-01-05] MEDS: ARIPIPRAZOLE 2 MG TABLET PO SCH (08:05)
[2018-01-05 08:15] LABS: ERYTHROCYTE SEDIMENTATION RATE 32 mm/hr (0-20)
[2018-01-05] MEDS ORDERED: UBIDECARENONE 10 MG PO SCH (09:00)
[2018-01-05] MEDS ORDERED: NON-FORMULARY MEDICATION (Pravastatin Sodium 40 MG) PO SCH (09:00)
[2018-01-05] MEDS ORDERED: METANX PO SCH (09:00)
[2018-01-05] MEDS ORDERED: DHEA PO SCH (09:00)
[2018-01-05] MEDS ORDERED: CO ENZYME Q10 PO SCH (09:00)
[2018-01-05] MEDS ORDERED: PRASTERONE 25 MG PO SCH (09:00)
[2018-01-05] MEDS ORDERED: NON-FORMULARY MEDICATION (Hydrochlorothiazide 25 MG) PO SCH (09:00)
[2018-01-05] MEDS ORDERED: [UNRECOGNIZED DRUG - OTHER] PO SCH (09:00)
[2018-01-05] MEDS ORDERED: NON-FORMULARY MEDICATION (Aripiprazole (Abilify) 2 MG) PO SCH (09:00)
[2018-01-05] MEDS ORDERED: [UNRECOGNIZED DRUG - OTHER] PO SCH (09:00)
[2018-01-05] MEDS ORDERED: CHOLECALCIFEROL 1,000 UNIT TAB PO SCH (09:00)
[2018-01-05] MEDS: PROMETHAZINE HCL 25 MG TAB PO SCH ×2 (11:50→20:47)
[2018-01-05] MEDS ORDERED: SODIUM CHLORIDE 0.9% 250ML 250 ML ONE (12:43)
[2018-01-05] MEDS ORDERED: ACETAMINOPHEN/CODEINE 300MG - 30MG TAB PO PRN (15:15)
--- NOTE | 2018-01-05 15:52 | Consultation ---
DATE OF CONSULTATION: January 05, 2018 INFECTIOUS DISEASE CONSULTATION REASON FOR CONSULTATION: Cellulitis of left upper extremity. HISTORY OF PRESENT ILLNESS: This patient, who is a very pleasant 77-year-old white female, comes in with redness and swelling of her left upper extremity. This patient has history of hypertension, depression, chronic kidney disease, . She comes into my office with redness and swelling of her arm. She fell. She scratched her arm. She took oral antibiotic without any improvement and came to my office. There was significant erythema and edema, and patient was admitted to be getting IV antibiotic. Patient is currently lying in bed comfortably. PAST MEDICAL HISTORY: As above. PAST SURGICAL HISTORY: As above. ALLERGIES: NKA. SOCIAL HISTORY: There is no smoking, drug abuse, alcohol abuse. FAMILY HISTORY: Otherwise unremarkable. REVIEW OF SYSTEMS: HEENT: Negative. PULMONARY: Negative. CARDIAC: Negative. : Negative. GI: Negative. SKIN: There are no other rashes. ALL OTHER SYMPTOMS: Within normal limits. MEDICATIONS: She is on Phenergan, cefepime, vancomycin, Abilify, Zoloft, multivitamin, Esidrex, and vitamin C. LABORATORY DATA: Reviewed. White count 8.6, hemoglobin 11.8, hematocrit 34. Her sodium 139, potassium 3.4, creatinine is 1.13. PHYSICAL EXAMINATION: GENERAL: She is currently alert, oriented, does not seem to be in acute distress. VITALS: Stable, currently afebrile. HEENT: She does not appear icteric. NECK: Supple. CHEST: Clear. HEART: S1/S2. No S3, no S4, no murmur. ABDOMEN: Soft. EXTREMITIES: The arm, there is erythema, there is edema. IMPRESSION: 1. Cellulitis of the arm. She is already on oral antibiotic. 2. Chronic kidney disease. Agree with vancomycin and cefepime. Will adjust for kidney function. Recheck CBC. Recheck chem panel. Will follow with you. Thank you for asking me to see this patient. Job#: [id number] EV
[2018-01-05] MEDS: HYDROCODONE/APAP 5MG-325MG TAB PO PRN ×2 (16:05→21:23)
[2018-01-05] MEDS: FAMOTIDINE 20 MG/2 ML VIAL IV SCH (17:20)
[2018-01-05] MEDS ORDERED: DEXTROSE 50% SYRINGE 50 ML IV PRN (18:45)
[2018-01-05] MEDS: ZOLPIDEM TARTRATE 10 MG TAB PO SCH (20:47)
[2018-01-05] MEDS: SIMVASTATIN 20 MG TAB PO SCH (20:48)
[2018-01-05] MEDS: INSULIN LISPRO 100 UNIT/1 ML 3ML VIAL SQ SCH (20:48)
[2018-01-05] MEDS ORDERED: INSULIN LISPRO 100 UNIT/1 ML 3ML VIAL SQ SCH (21:00)
[2018-01-06] VITALS (8 sets, daily range): BP systolic 132–167; BP diastolic 62–75
[2018-01-06] MEDS: LEVOTHYROXINE SODIUM 112 MCG TAB PO SCH (05:21)
[2018-01-06] MEDS ORDERED: ALENDRONATE SODIUM 70 MG TAB PO SCH (06:30)
[2018-01-06 06:57] LABS: BASOPHILS # (AUTO) 0.1 (0.0-0.1); EOSINOPHILS # (AUTO) 0.8 (0.0-0.4); EOSINOPHILS % 13.1 % (0.0-6.0); HEMATOCRIT 32.9 % (34.2-44.1); HEMOGLOBIN 10.9 g/dL (12.0-16.0); LYMPHOCYTES # (AUTO) 1.4 (1.0-3.2); LYMPHOCYTES % 23.1 % (18.0-39.1); MEAN CORPUSCULAR HEMOGLOBIN 30.3 pg (28-32); MEAN CORPUSCULAR HGB CONC 33.1 g/dL (31-35); MEAN CORPUSCULAR VOLUME 91.4 fL (81-99); MONOCYTES # (AUTO) 1.1 (0.2-0.8); MONOCYTES % 17.4 % (4.4-11.3); NEUTROPHILS # (AUTO) 2.7 (2.1-6.9); NEUTROPHILS % 45.1 % (38.7-80.0); PLATELET COUNT 95 x10e3/uL (140-360); RED CELL DISTRIBUTION WIDTH 14.1 % (11.7-14.4)
[2018-01-06] MEDS: INSULIN LISPRO 100 UNIT/1 ML 3ML VIAL SQ SCH ×4 (07:30→20:29)
[2018-01-06 07:37] LABS: ANION GAP 12.4 mmol/L (8-16); CALCIUM 9.1 mg/dL (8.4-10.2); CREATININE, SERUM 1.22 mg/dL (0.57-1.11); MAGNESIUM 1.9 MG/DL (1.3-2.1); POTASSIUM 3.4 mmol/L (3.5-5.1)
[2018-01-06 08:04] LABS: FREE T4 (FREE THYROXINE) 0.82 ng/dL (0.9-1.8); THYROID STIMULATING HORMONE 7.964 uIU/mL (0.350-4.940)
[2018-01-06] MEDS: HYDROCODONE/APAP 5MG-325MG TAB PO PRN (08:30)
[2018-01-06] MEDS: FAMOTIDINE 20 MG/2 ML VIAL IV SCH ×2 (08:36→16:20)
[2018-01-06] MEDS: TOLTERODINE TARTRATE 2 MG CAPCR PO SCH ×2 (08:36→16:13)
[2018-01-06] MEDS: PANTOPRAZOLE SOD 40 MG TABEC PO SCH (08:36)
[2018-01-06] MEDS: ESTRADIOL 1 MG TAB PO SCH (08:36)
[2018-01-06] MEDS: LISINOPRIL 10 MG TAB PO SCH (08:36)
[2018-01-06] MEDS: ASCORBIC ACID 500 MG TAB PO SCH ×2 (08:36→16:13)
[2018-01-06] MEDS: APIXABAN 5 MG TABLET PO SCH (08:36)
[2018-01-06] MEDS: CEFEPIME HCL 1 GM VIAL IV SCH (08:36)
[2018-01-06] MEDS: FERROUS SULFATE 325 MG TAB PO SCH ×2 (08:36→16:13)
[2018-01-06] MEDS: PROMETHAZINE HCL 25 MG TAB PO SCH ×2 (08:36→20:29)
[2018-01-06] MEDS: VANCOMYCIN 1GM/NS 250 ML 250 ML IV SCH (08:36)
[2018-01-06] MEDS: MULTIVITAMINS/MINERALS TAB PO SCH (08:36)
[2018-01-06] MEDS: HYDROCHLOROTHIAZIDE 25 MG TAB PO SCH (08:36)
[2018-01-06] MEDS: ARIPIPRAZOLE 2 MG TABLET PO SCH (08:36)
[2018-01-06] MEDS: QUETIAPINE FUMARATE 25 MG TAB PO SCH (08:36)
[2018-01-06] MEDS: SODIUM BICARBONATE 650 MG TAB PO SCH ×2 (08:37→16:13)
[2018-01-06] MEDS: SERTRALINE HCL 100 MG TAB PO SCH (08:37)
[2018-01-06] MEDS ORDERED: POTASSIUM CHLORIDE 20 MEQ TAB CR PO NR (11:45)
[2018-01-06] MEDS: AMLODIPINE BESYLATE 5 MG TAB PO SCH (12:13)
[2018-01-06] MEDS: ZOLPIDEM TARTRATE 10 MG TAB PO SCH (20:29)
[2018-01-06] MEDS: SIMVASTATIN 20 MG TAB PO SCH (20:29)
[2018-01-07] VITALS (8 sets, daily range): BP systolic 140–169; BP diastolic 70–81
[2018-01-07] MEDS: LEVOTHYROXINE SODIUM 125 MCG TAB PO SCH (06:26)
[2018-01-07] MEDS ORDERED: ALENDRONATE SODIUM 70 MG TAB PO SCH (06:30)
[2018-01-07 07:04] LABS: BASOPHILS # (AUTO) 0.1 (0.0-0.1); BASOPHILS % 0.9 % (0.0-1.0); EOSINOPHILS # (AUTO) 0.7 (0.0-0.4); EOSINOPHILS % 11.1 % (0.0-6.0); HEMATOCRIT 34.8 % (34.2-44.1); HEMOGLOBIN 11.3 g/dL (12.0-16.0); LYMPHOCYTES # (AUTO) 1.7 (1.0-3.2); LYMPHOCYTES % 25.3 % (18.0-39.1); MEAN CORPUSCULAR HEMOGLOBIN 30.1 pg (28-32); MEAN CORPUSCULAR HGB CONC 32.5 g/dL (31-35); MEAN CORPUSCULAR VOLUME 92.8 fL (81-99); MONOCYTES % 14.7 % (4.4-11.3); NEUTROPHILS # (AUTO) 3.1 (2.1-6.9); NEUTROPHILS % 47.7 % (38.7-80.0); PLATELET COUNT 96 x10e3/uL (140-360); RED BLOOD COUNT 3.75 x10e6/uL (3.6-5.1); RED CELL DISTRIBUTION WIDTH 14.3 % (11.7-14.4)
[2018-01-07] MEDS: INSULIN LISPRO 100 UNIT/1 ML 3ML VIAL SQ SCH ×4 (07:30→20:20)
[2018-01-07 07:50] LABS: ANION GAP 13.8 mmol/L (8-16); CALCIUM 9.5 mg/dL (8.4-10.2); CREATININE, SERUM 1.1 mg/dL (0.57-1.11); MAGNESIUM 2.1 MG/DL (1.3-2.1); POTASSIUM 3.8 mmol/L (3.5-5.1)
[2018-01-07] MEDS: TOLTERODINE TARTRATE 2 MG CAPCR PO SCH ×2 (08:35→16:25)
[2018-01-07] MEDS: ASCORBIC ACID 500 MG TAB PO SCH ×2 (08:35→16:25)
[2018-01-07] MEDS: FERROUS SULFATE 325 MG TAB PO SCH ×2 (08:35→16:25)
[2018-01-07] MEDS: VANCOMYCIN 1GM/NS 250 ML 250 ML IV SCH (08:35)
[2018-01-07] MEDS: FAMOTIDINE 20 MG/2 ML VIAL IV SCH ×2 (08:35→16:26)
[2018-01-07] MEDS: PANTOPRAZOLE SOD 40 MG TABEC PO SCH (08:35)
[2018-01-07] MEDS: APIXABAN 5 MG TABLET PO SCH (08:35)
[2018-01-07] MEDS: CEFEPIME HCL 1 GM VIAL IV SCH (08:35)
[2018-01-07] MEDS: ARIPIPRAZOLE 2 MG TABLET PO SCH (08:35)
[2018-01-07] MEDS: ESTRADIOL 1 MG TAB PO SCH (08:36)
[2018-01-07] MEDS: MULTIVITAMINS/MINERALS TAB PO SCH (08:36)
[2018-01-07] MEDS: LISINOPRIL 10 MG TAB PO SCH (08:36)
[2018-01-07] MEDS: SERTRALINE HCL 100 MG TAB PO SCH (08:36)
[2018-01-07] MEDS: PROMETHAZINE HCL 25 MG TAB PO SCH ×2 (08:36→20:20)
[2018-01-07] MEDS: AMLODIPINE BESYLATE 5 MG TAB PO SCH (08:36)
[2018-01-07] MEDS: HYDROCHLOROTHIAZIDE 25 MG TAB PO SCH (08:36)
[2018-01-07] MEDS: SODIUM BICARBONATE 650 MG TAB PO SCH ×2 (08:36→16:25)
[2018-01-07] MEDS: QUETIAPINE FUMARATE 25 MG TAB PO SCH (08:36)
[2018-01-07] MEDS ORDERED: MORPHINE SULFATE 2 MG/ML SYR IV PRN ×2 (15:00→15:15)
[2018-01-07] MEDS ORDERED: HYDROCODONE/APAP 10MG-325MG TAB PO PRN (15:00)
[2018-01-07] MEDS ORDERED: MORPHINE SULFATE 4 MG/ML SYR IV PRN (15:00)
[2018-01-07] MEDS: SIMVASTATIN 20 MG TAB PO SCH (20:20)
[2018-01-07] MEDS: ZOLPIDEM TARTRATE 10 MG TAB PO SCH (20:20)
[2018-01-08] VITALS (7 sets, daily range): BP systolic 130–170; BP diastolic 60–79
[2018-01-08] MEDS: HYDRALAZINE HCL 20 MG/ML VIAL IV PRN (00:20)
[2018-01-08] MEDS: LEVOTHYROXINE SODIUM 125 MCG TAB PO SCH (06:02)
[2018-01-08 06:56] LABS: BASOPHILS # (AUTO) 0.1 (0.0-0.1); BASOPHILS % 0.7 % (0.0-1.0); EOSINOPHILS # (AUTO) 0.5 (0.0-0.4); EOSINOPHILS % 7.5 % (0.0-6.0); HEMATOCRIT 35.8 % (34.2-44.1); HEMOGLOBIN 11.7 g/dL (12.0-16.0); LYMPHOCYTES # (AUTO) 1.4 (1.0-3.2); LYMPHOCYTES % 19.6 % (18.0-39.1); MEAN CORPUSCULAR HEMOGLOBIN 29.9 pg (28-32); MEAN CORPUSCULAR HGB CONC 32.7 g/dL (31-35); MEAN CORPUSCULAR VOLUME 91.6 fL (81-99); MONOCYTES # (AUTO) 0.9 (0.2-0.8); MONOCYTES % 12.1 % (4.4-11.3); NEUTROPHILS # (AUTO) 4.3 (2.1-6.9); PLATELET COUNT 110 x10e3/uL (140-360); RED BLOOD COUNT 3.91 x10e6/uL (3.6-5.1); RED CELL DISTRIBUTION WIDTH 14.2 % (11.7-14.4)
[2018-01-08 07:23] LABS: ANION GAP 14.6 mmol/L (8-16); CALCIUM 9.4 mg/dL (8.4-10.2); CREATININE, SERUM 1.08 mg/dL (0.57-1.11); MAGNESIUM 1.9 MG/DL (1.3-2.1); POTASSIUM 3.6 mmol/L (3.5-5.1)
[2018-01-08] MEDS: PANTOPRAZOLE SOD 40 MG TABEC PO SCH (07:25)
[2018-01-08] MEDS: ASCORBIC ACID 500 MG TAB PO SCH ×2 (07:25→16:25)
[2018-01-08] MEDS: FERROUS SULFATE 325 MG TAB PO SCH ×2 (07:25→16:25)
[2018-01-08] MEDS: VANCOMYCIN 1GM/NS 250 ML 250 ML IV SCH (07:25)
[2018-01-08] MEDS: INSULIN LISPRO 100 UNIT/1 ML 3ML VIAL SQ SCH ×4 (07:30→20:32)
[2018-01-08] MEDS: CEFEPIME HCL 1 GM VIAL IV SCH (08:30)
[2018-01-08] MEDS: FAMOTIDINE 20 MG/2 ML VIAL IV SCH (08:30)
[2018-01-08] MEDS: TOLTERODINE TARTRATE 2 MG CAPCR PO SCH ×2 (08:30→16:25)
[2018-01-08] MEDS: ARIPIPRAZOLE 2 MG TABLET PO SCH (08:30)
[2018-01-08] MEDS: APIXABAN 5 MG TABLET PO SCH (08:30)
[2018-01-08] MEDS: SERTRALINE HCL 100 MG TAB PO SCH (08:31)
[2018-01-08] MEDS: AMLODIPINE BESYLATE 5 MG TAB PO SCH (08:31)
[2018-01-08] MEDS: PROMETHAZINE HCL 25 MG TAB PO SCH ×2 (08:31→20:32)
[2018-01-08] MEDS: MULTIVITAMINS/MINERALS TAB PO SCH (08:31)
[2018-01-08] MEDS: SODIUM BICARBONATE 650 MG TAB PO SCH ×2 (08:31→16:25)
[2018-01-08] MEDS: QUETIAPINE FUMARATE 25 MG TAB PO SCH (08:31)
[2018-01-08] MEDS: ESTRADIOL 1 MG TAB PO SCH (08:31)
[2018-01-08] MEDS: LISINOPRIL 20 MG TAB PO SCH (08:31)
[2018-01-08] MEDS: HYDROCHLOROTHIAZIDE 25 MG TAB PO SCH (08:31)
[2018-01-08] MEDS ORDERED: GUAIFENESIN 600 MG TAB PO PRN (13:30)
[2018-01-08] MEDS: FAMOTIDINE 20 MG TAB PO SCH (16:25)
[2018-01-08] MEDS: SIMVASTATIN 20 MG TAB PO SCH (20:32)
[2018-01-08] MEDS: ZOLPIDEM TARTRATE 10 MG TAB PO SCH (20:32)
[2018-01-09] VITALS: BP 123/58
[2018-01-09 04:00] VITALS: BP 179/81
[2018-01-09] MEDS: LEVOTHYROXINE SODIUM 125 MCG TAB PO SCH (06:11)
[2018-01-09 07:25] LABS: BASOPHILS # (AUTO) 0.1 (0.0-0.1); BASOPHILS % 0.9 % (0.0-1.0); EOSINOPHILS # (AUTO) 0.6 (0.0-0.4); EOSINOPHILS % 11.3 % (0.0-6.0); HEMATOCRIT 33.4 % (34.2-44.1); HEMOGLOBIN 11.2 g/dL (12.0-16.0); LYMPHOCYTES # (AUTO) 1.3 (1.0-3.2); LYMPHOCYTES % 23.6 % (18.0-39.1); MEAN CORPUSCULAR HEMOGLOBIN 30.9 pg (28-32); MEAN CORPUSCULAR HGB CONC 33.5 g/dL (31-35); MONOCYTES % 17.4 % (4.4-11.3); NEUTROPHILS # (AUTO) 2.6 (2.1-6.9); NEUTROPHILS % 46.6 % (38.7-80.0); PLATELET COUNT 105 x10e3/uL (140-360); RED BLOOD COUNT 3.63 x10e6/uL (3.6-5.1); RED CELL DISTRIBUTION WIDTH 14.1 % (11.7-14.4)
[2018-01-09] MEDS: PANTOPRAZOLE SOD 40 MG TABEC PO SCH (07:30)
[2018-01-09] MEDS: INSULIN LISPRO 100 UNIT/1 ML 3ML VIAL SQ SCH ×3 (07:30→16:30)
[2018-01-09] MEDS: FAMOTIDINE 20 MG TAB PO SCH ×2 (07:32→16:25)
[2018-01-09 07:51] LABS: ANION GAP 11.4 mmol/L (8-16); CALCIUM 9.1 mg/dL (8.4-10.2); CREATININE, SERUM 1.03 mg/dL (0.57-1.11); MAGNESIUM 1.9 MG/DL (1.3-2.1); POTASSIUM 3.4 mmol/L (3.5-5.1)
[2018-01-09] MEDS: FERROUS SULFATE 325 MG TAB PO SCH ×2 (07:55→16:53)
[2018-01-09] MEDS: ASCORBIC ACID 500 MG TAB PO SCH ×2 (07:55→16:53)
[2018-01-09] MEDS: VANCOMYCIN 1GM/NS 250 ML 250 ML IV SCH (07:55)
[2018-01-09] MEDS ORDERED: NORVASC5 MG PO (07:56)
[2018-01-09] MEDS ORDERED: SYNTHROID125 MCG PO (07:56)
[2018-01-09] MEDS ORDERED: BACTRIM DS TAB1 EACH PO (07:56)
[2018-01-09] MEDS ORDERED: CIPRO500 MG PO (07:56)
[2018-01-09 08:00] VITALS: BP 135/59
[2018-01-09] MEDS: HYDROCHLOROTHIAZIDE 25 MG TAB PO SCH (08:27)
[2018-01-09] MEDS: APIXABAN 5 MG TABLET PO SCH (08:27)
[2018-01-09] MEDS: MULTIVITAMINS/MINERALS TAB PO SCH (08:27)
[2018-01-09] MEDS: CEFEPIME HCL 1 GM VIAL IV SCH (08:27)
[2018-01-09] MEDS: ARIPIPRAZOLE 2 MG TABLET PO SCH (08:27)
[2018-01-09] MEDS: ESTRADIOL 1 MG TAB PO SCH (08:27)
[2018-01-09] MEDS: TOLTERODINE TARTRATE 2 MG CAPCR PO SCH ×2 (08:27→16:53)
[2018-01-09] MEDS: PROMETHAZINE HCL 25 MG TAB PO SCH (08:28)
[2018-01-09] MEDS: AMLODIPINE BESYLATE 5 MG TAB PO SCH (08:28)
[2018-01-09] MEDS: QUETIAPINE FUMARATE 25 MG TAB PO SCH (08:28)
[2018-01-09] MEDS: LISINOPRIL 20 MG TAB PO SCH (08:28)
[2018-01-09] MEDS: SERTRALINE HCL 100 MG TAB PO SCH (08:28)
[2018-01-09] MEDS: SODIUM BICARBONATE 650 MG TAB PO SCH ×2 (08:28→16:53)
[2018-01-09 10:01] VITALS: BP 136/59
[2018-01-09] MEDS ORDERED: POTASSIUM CHLORIDE 20 MEQ TAB CR PO ONE (10:30)
[2018-01-09 12:00] VITALS: BP 138/65
--- NOTE | 2018-01-09 15:51 | Progress Note ---
DATE: January 09, 2018 SUBJECTIVE: Ms. Yuen continued to improve. OBJECTIVE GENERAL: Alert, oriented, does not seem to be in any acute distress. VITAL SIGNS: Stable, currently afebrile. HEENT: Not icteric. NECK: Supple. CHEST: Clear bilaterally. HEART: S1 and S2, no murmur. ABDOMEN: Soft. Bowel sounds present. No tenderness. EXTREMITIES: The arm less erythematous and edematous. IMPRESSION: Cellulitis, very slow progress. PLAN: Continue with current choice of IV antibiotics. If she continues to improve over the next 24 to 48 hours, will switch her over to oral antibiotics, maybe one day. Will follow. Job#: [id number]
[2018-01-09 16:00] VITALS: BP 137/63
--- NOTE | 2018-01-09 23:52 | Discharge Summary ---
ADMISSION DIAGNOSES 1. Thumb cellulitis. 2. Hypertension. 3. Depression. 4. Gastroesophageal reflux disease. 5. Overactive bladder. 6. Insomnia. 7. Hypothyroidism. 8. Hyperlipidemia. DISCHARGE DIAGNOSES 1. Thumb cellulitis. 2. Hypertension. 3. Depression. 4. Gastroesophageal reflux disease. 5. Overactive bladder. 6. Insomnia. 7. Hypothyroidism. 8. Hyperlipidemia. 9. Hypokalemia. 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 Surgical history of and left femur ORIF. HOSPITAL COURSE: A 77-year-old female complains of left upper arm pain, swelling, and erythema that began this week, sent from Dr. Sheehan's office. She admits to falling December 29, 2017, with no apparent injury. She went to the ER and was sent home, status post . She denies fever. Pain meds helped with the pain, nothing makes the pain worse. Patient was initially sent on cefepime and vancomycin per ID and resumed home medicines for the hypertension, depression, GERD, overactive bladder, insomnia, hyperlipidemia. We continued her home dose of levothyroxine, but her TSH was found to be high and her T4 low, so we increased her dose to 125 mcg daily. Her blood pressure also ran on the high side even after getting her home medicines, so she was also started on Norvasc 5 daily. After about 4 days, the patient's cellulitis is much improved. She was cleared for discharge home. Infectious disease agrees and she will follow up in about a week with infectious disease and 2 weeks with primary care. She was sent home with 7 more days of Bactrim and Cipro p.o., as well as the Norvasc and new dose of levothyroxine. Patient is excited and ready to go home. Dictated By: Mary Ann Nuñez NP ANDRIA LAWRENCE MD Job#: [id number] CQ
== END 2018-01-09 17:11 | disposition home or self-care (01) | DRG 603 ==
LOC: MED/SURG3 17:23
PROVIDERS: ADMIT Internal Medicine; ATTEND Internal Medicine
DX: L03.114 Cellulitis of left upper limb (principal); I12.9 Hypertensive chronic kidney disease with stage 1 through stage 4 chronic kidney disease, or unspecified chronic kidney disease; K21.9 Gastro-esophageal reflux disease without esophagitis; E03.9 Hypothyroidism, unspecified; E78.5 Hyperlipidemia, unspecified; F32.9 Major depressive disorder, single episode, unspecified; G47.00 Insomnia, unspecified; E87.6 Hypokalemia; R53.81 Other malaise; D69.6 Thrombocytopenia, unspecified; N32.81 Overactive bladder; N18.3 Chronic kidney disease, stage 3 (moderate); Z86.711 Personal history of pulmonary embolism; Z95.9 Presence of cardiac and vascular implant and graft, unspecified
CPT/HCPCS: 36415; 80048; 80053; 80202; 82948; 83036; 83735; 84439; 84443; 85025; 85651; 86140; J0360; J0692; J1200; J2270; J3370; J7050

== ENCOUNTER → 2018-01-04 | Emergency (ER) | payer MEDICARE ==
[~2018-01-04] MED LIST changes: +BACTRIM DS TAB1 EACH PO; +CIPRO500 MG PO; +NORVASC5 MG PO; +SYNTHROID125 MCG PO
--- OUTSIDE RECORDS SUMMARY | 2018-01-04 16:19 | XMS REPORT | Continuity of Care Document ---
Author Author [facility] Organization [facility] Address [address] [place] [address] Phone Unavailable Care Team Providers Care Clinical Recruiter Name Role Phone ALEX ANDRIA PCP Insurance Providers Guarantor Vijay Brock Address [address] [place] [address] Email [email or web address] Payer [facility] Policy Number [id number] Subscriber's Name Temitope Brockemeli Relationship 18 Self / Same As Patient Effective Date 17 Payer Medicare A & B Policy Number [id number] Subscriber's Name Vijay Brock Relationship 18 Self / Same As Patient Effective Date 12 Advance Directives Directive Response Recorded Date/Time Does the patient have an advance directive? Yes 01/01/18 11:42am If yes, is advance directive on file with [facility]? No 04/09/17 3:22pm If not on file with [facility] will patient provide a copy? Yes 01/01/18 11:42am Do you have a Directive to Physician? No 01/01/18 11:42am Do you have a Medical Power of Foreign Clerk? No 01/01/18 11:42am Do you have an out of hospital Do Not Resuscitate Order? No 01/01/18 11:42am Do you have any special needs we should be aware of? No 01/01/18 11:42am Do you have a support person here with you today? No 01/01/18 11:42am Did patient receive Notice of Privacy Practices? Yes 01/01/18 11:42am Did patient receive patient rights and responsibilities? Yes 01/01/18 11:42am Problems Medical Problem Onset Date Status Abrasion [...] information available. Plan of Care Discharge Date 01/01/18 2:15pm Disposition HOME, SELF-CARE Condition at Discharge Stable Instructions/Education Provided Fall Prevention Forms Provided Work/School Excuse Prescriptions See Medication Section Referrals ANDRIA JOHNSON Address: [address] [place] [phone] Additional Instructions/Education Follow up with you primary care doctor as needed. Return to ER if condition worsens Functional Status No functional status information available. [...] 11/02/2017 9:24pm Height 5 ft 6 in 01/01/2018 10:49am Weight 189 lb 01/01/2018 10:49am Body Mass Index 30.5 kg/m^2 01/01/2018 10:49am Results Laboratory Results Test Name Result Units Flags Reference Collection Date/Time Result Date/ Time Comments Random Vancomycin Level 16.7 ug/mL 03/17/2017 6:45am 03/17/2017 7: 37am Bedside Glucose 110 mg/dL 70-120 04/15/2017 3:31pm 04/15/2017 3:42pm Meter ID: [id number] Iron Level 43 ug/dL L 50-170 04/12/2017 [...] Discharge/Depart Date Attending Provider Departed Emergency Room [facility] 01/01/18 10:31am 01/01 2:15pm VEENA MARX MD Departed Emergency Room [facility] 11/02/17 1:29pm 9:44pm CALLUM VARGAS MD Departed Emergency Room [facility] 10/16/17 12:15pm 10/16 3:02pm VEENA MARX MD Discharged [facility]patient [facility] 04/09/17 1:58pm 04/15/17 6:05pm ANDRIA LAWRENCE MD Discharged [facility]patient [facility] 03/12/17 8:42pm 03/17/17 6:10pm ANDRIA LAWRENCE MD
== END | disposition left against medical advice (07) ==
LOC: ER 16:15
DX: R69 Illness, unspecified (principal)

== ENCOUNTER 2018-06-13 16:39 | Inpatient (IN) | payer MEDICARE ==
[~2018-06-13] VITALS: Ht 170.2 cm; Wt 67.1 kg
[~2018-06-13 16:39] MED LIST changes: +BACTRIM DS TAB1 EACH PO; +CIPRO500 MG PO; +NORVASC5 MG PO; +SYNTHROID125 MCG PO
[2018-06-13 17:53] LABS: BASOPHILS % 0.3 % (0.0-1.0); HEMATOCRIT 40.6 % (34.2-44.1); HEMOGLOBIN 13.4 g/dL (12.0-16.0); LYMPHOCYTES # (AUTO) 0.4 (1.0-3.2); LYMPHOCYTES % 3.7 % (18.0-39.1); MEAN CORPUSCULAR HEMOGLOBIN 30.5 pg (28-32); MEAN CORPUSCULAR VOLUME 92.3 fL (81-99); MONOCYTES # (AUTO) 1.8 (0.2-0.8); MONOCYTES % 15.5 % (4.4-11.3); NEUTROPHILS % 79.7 % (38.7-80.0); RED CELL DISTRIBUTION WIDTH 13.9 % (11.7-14.4)
[2018-06-13] MEDS ORDERED: FAMOTIDINE 20 MG/2 ML VIAL IV ONE (18:00)
[2018-06-13] MEDS ORDERED: ONDANSETRON HCL INJ 2 MG/ML VIAL IV ONE (18:00)
[2018-06-13] MEDS ORDERED: DIATRIZOATE MEGL/DIATRIZOA SOD 30 ML BTL PO ONE (18:03)
[2018-06-13 18:14] LABS: ALBUMIN 3.4 g/dL (3.5-5.0); ALBUMIN/GLOBULIN RATIO 0.8 (0.8-2.0); CALCIUM 9.5 mg/dL (8.4-10.2); CREATININE, SERUM 1.46 mg/dL (0.57-1.11)
[2018-06-13] MEDS ORDERED: MORPHINE SULFATE INJ 4 MG/ML INJ IV ONE (18:30)
[2018-06-13] MEDS ORDERED: MORPHINE SULFATE 2 MG/ML SYR IV ONE (18:30)
[2018-06-13 18:35] LABS: BAND NEUTROPHILS % (MANUAL) 1 %; LYMPHOCYTES % (MANUAL) 4 % (19-48); MONOCYTES % (MANUAL) 3 % (3.4-9.0); NEUTROPHILS % (MANUAL) 92 % (40-74); RBC MORPHOLOGY COMMENT NORMAL
[2018-06-13 18:36] LABS: PLATELET COUNT 69 x10e3/uL (140-360); PLATELET ESTIMATE MODERATELY DECREASED; PLATELET MORPHOLOGY COMMENT NORMAL
--- NOTE | 2018-06-13 18:47 | Diagnostic Imaging Report ---
EXAMINATION: CHEST SINGLE (PORTABLE) COMPARISON: None available INDICATION: Chest pain, abdominal pain, nausea DISCUSSION: Frontal view of the chest obtained at 1816 hours. HEART AND MEDIASTINUM: The heart is normal in size. Aortic arch is ectatic. No hilar lymphadenopathy. LINES: None. LUNGS: The lungs are well inflated and clear. Pulmonary vasculature is normal. No interstitial edema. No mass or infiltrates. PLEURA: No pleural effusion or pneumothorax. BONES AND SOFT TISSUES: Mild curvilinear sclerotic foci in the humeral heads suggestive of rotator cuff pathology. The soft tissues are normal. IMPRESSION: No acute cardiopulmonary disease. Signed by: Dr. Conor Caba MD on 06/13/2018 6:44 PM
[2018-06-13 20:00] VITALS: BP 162/77
[2018-06-13] MEDS ORDERED: SODIUM CHLORIDE 0.9% 1000ML 1,000 ML IV ONE (20:45)
--- NOTE | 2018-06-13 20:53 | Diagnostic Imaging Report ---
EXAM: CT ABDOMEN/PELVIS WO DATE: 06/13/2018 5:20 PM INDICATION: Abdominal pain ^Look for stone, SBO, appy, colitis ^[id number] ^1948 ^Y COMPARISON: None TECHNIQUE: The abdomen and pelvis were scanned using a multidetector helical scanner. Coronal and sagittal reformations were obtained. CT low dose techniques were utilized, as applicable. IV Contrast: 0 ml Isovue 300/370 FINDINGS: Lack of IV contrast decreases sensitivity in evaluating abdominal and pelvic organs. LOWER THORAX: Minimal dependent bibasilar and tiny nodules, likely sequelae of prior aspiration or infection. Small pericardial effusion. LIVER/BILIARY: Unremarkable noncontrast appearance. GALLBLADDER: Distended with 7 mm radiopaque stone. SPLEEN: Unremarkable PANCREAS: Unremarkable ADRENALS: No nodules KIDNEYS: No stones or hydronephrosis. Moderate left perinephric GI TRACT: No wall thickening or evidence of obstruction. Appendix not visualized. VESSELS: IVC filter noted. Moderate atherosclerotic PERITONEUM/RETROPERITONEUM: No free air or fluid LYMPH NODES: No lymphadenopathy REPRODUCTIVE ORGANS/BLADDER: Hysterectomy. Nonspecific submucosal fat deposition of the bladder, which can be a normal incidental finding. BONES: Degenerative changes and abnormal curvature of the spine. IMPRESSION: Evaluation degraded by lack of IV contrast. 1. Nonspecific left perinephric stranding, which can be seen with pyelonephritis in the proper clinical setting. 2. Mild bibasilar opacity, favor sequelae of aspiration or infection. Signed by: Dr Sydnee Kam MD on 06/13/2018 8:49 PM
[2018-06-13] MEDS ORDERED: AZITHROMYCIN 500MG/NS 250 ML 250 ML IV SCH (21:00)
[2018-06-13] MEDS ORDERED: ACETAMINOPHEN 325 MG TAB PO PRN (21:15)
[2018-06-13] MEDS ORDERED: ONDANSETRON HCL INJ 2 MG/ML VIAL IV PRN (21:15)
[2018-06-13 21:35] LABS: BILIRUBIN,URINE 2+ (NEGATIVE); CLARITY,URINE CLOUDY (CLEAR); COLOR,URINE YELLOW (YELLOW); KETONES,URINE 1+ (NEGATIVE); LEUKOCYTE ESTERASE ,URINE 2+ (NEGATIVE); NITRITE,URINE NEGATIVE (NEGATIVE); PROTEIN,URINE DIPSTICK 1+ (NEGATIVE); URINE UROBILINOGEN 0.2 mg/dL (0.2 - 1)
[2018-06-13 21:42] LABS: BACTERIA,URINE MANY /HPF; EPITHELIAL CELLS,URINE FEW /LPF; RENAL EPITHELIAL CELLS,URINE FEW; WBC,URINE (MAN) 21-50 /HPF (0-5)
[2018-06-13] MEDS: CEFTRIAXONE SOD 1 GM VIAL IV SCH (21:47)
[2018-06-13 22:16] VITALS: BP 162/77
[2018-06-13] MEDS: ALBUTEROL SULF 0.083% NEB SOLN 3 ML NEB NEB SCH (22:40)
[2018-06-13] MEDS: SODIUM CHLORIDE 0.9% 1000ML 1,000 ML IV SCH (22:48)
[2018-06-13 23:44] VITALS: BP 160/79
[2018-06-14] MEDS: MORPHINE SULFATE 2 MG/ML SYR IV PRN ×2 (00:57→04:32)
[2018-06-14] MEDS ORDERED: IPRATROPIUM BROMIDE 0.02% 2.5 ML NEB NEB SCH (01:00)
[2018-06-14] MEDS: ALBUTEROL SULF 0.083% NEB SOLN 3 ML NEB NEB SCH ×6 (02:29→23:00)
[2018-06-14 05:34] LABS: BASOPHILS % 0.3 % (0.0-1.0); EOSINOPHILS % 0.3 % (0.0-6.0); HEMATOCRIT 36.7 % (34.2-44.1); HEMOGLOBIN 11.6 g/dL (12.0-16.0); LYMPHOCYTES # (AUTO) 0.2 (1.0-3.2); LYMPHOCYTES % 2.8 % (18.0-39.1); MEAN CORPUSCULAR HEMOGLOBIN 29.8 pg (28-32); MEAN CORPUSCULAR HGB CONC 31.6 g/dL (31-35); MEAN CORPUSCULAR VOLUME 94.3 fL (81-99); MONOCYTES # (AUTO) 0.9 (0.2-0.8); NEUTROPHILS # (AUTO) 5.6 (2.1-6.9); NEUTROPHILS % 83.2 % (38.7-80.0); PLATELET COUNT 54 x10e3/uL (140-360); RED BLOOD COUNT 3.89 x10e6/uL (3.6-5.1); RED CELL DISTRIBUTION WIDTH 14.1 % (11.7-14.4)
[2018-06-14 05:58] LABS: ALBUMIN 2.8 g/dL (3.5-5.0); ALBUMIN/GLOBULIN RATIO 0.7 (0.8-2.0); ANION GAP 16.2 mmol/L (8-16); CALCIUM 8.6 mg/dL (8.4-10.2); CREATININE, SERUM 1.26 mg/dL (0.57-1.11); POTASSIUM 3.2 mmol/L (3.5-5.1)
[2018-06-14 06:25] LABS: CREATINE KINASE MB 1.4 ng/mL (0-5.0)
[2018-06-14] MEDS: SODIUM CHLORIDE 0.9% 1000ML 1,000 ML IV SCH (06:26)
[2018-06-14 06:34] LABS: LYMPHOCYTES % (MANUAL) 9 % (19-48); MONOCYTES % (MANUAL) 7 % (3.4-9.0); NEUTROPHILS % (MANUAL) 84 % (40-74)
[2018-06-14] MEDS: IPRATROPIUM BROMIDE 0.02% 2.5 ML NEB NEB SCH ×4 (07:00→23:00)
[2018-06-14 07:28] VITALS: BP 154/84
[2018-06-14 08:00] VITALS: BP 154/84
[2018-06-14] MEDS ORDERED: HYDRALAZINE HCL 20 MG/ML VIAL IV PRN (09:30)
[2018-06-14] MEDS ORDERED: POTASSIUM CHLORIDE 20 MEQ TAB CR PO STA (09:31)
[2018-06-14] MEDS: LISINOPRIL 10 MG TAB PO SCH (10:31)
[2018-06-14] MEDS: GUAIFENESIN 600MG/DEXTROMETHORPHAN 30MG TABSR PO SCH ×2 (10:31→17:05)
[2018-06-14] MEDS: HYDROCHLOROTHIAZIDE 25 MG TAB PO SCH (10:31)
[2018-06-14] MEDS: QUETIAPINE FUMARATE 25 MG TAB PO SCH (10:31)
[2018-06-14] MEDS: PANTOPRAZOLE SOD 40 MG TABEC PO SCH (10:40)
[2018-06-14 11:56] VITALS: BP 116/64
[2018-06-14 13:59] LABS: CREATINE KINASE MB 5.1 ng/mL (0-5.0)
[2018-06-14 16:00] VITALS: BP 135/82
--- NOTE | 2018-06-14 16:58 | Consultation ---
DATE OF CONSULTATION: REASON FOR CONSULTATION: Sepsis, gram-negative bacteremia, UTI, pyelonephritis. This patient is a very pleasant 77-year-old white female. She came in with 3-day history of not feeling well, fever, chills, abdominal discomfort, diarrhea and nausea. The patient felt really bad and had to come to the hospital. The patient is currently laying in bed. She looks comfortable, but her urine cultures are growing gram-negative rods. Her blood cultures grew gram-negative rods, and so infectious disease was consulted. PAST MEDICAL HISTORY: Osteoarthritis, history of asthma, hypertension. PAST SURGICAL HISTORY: Denies. ALLERGIES: CODEINE, TRAMADOL. SOCIAL HISTORY: No smoking, drug abuse or alcohol abuse. FAMILY HISTORY: Noncontributory. MEDICATIONS: She is lisinopril, Esidrex, morphine, Zofran, ceftriaxone, Zoloft, acetaminophen, levothyroxine, amlodipine. This patient with history of hypertension, depression, chronic kidney disease, status post . REVIEW OF SYSTEMS: HEENT: Negative. PULMONARY: Negative. CARDIAC: Negative. : Negative. SKIN: There is no other rash. LABORATORY DATA: White count is elevated at 0.26, hemoglobin 13.4, hematocrit 40, sodium 148, potassium 3.2, creatinine 1.26, was 1.46 on admission. PHYSICAL EXAMINATION GENERAL: She is currently alert, oriented, does not seem to be in acute distress. VITAL SIGNS: Stable, currently afebrile. Temperature 96.9, heart rate 97, respirations 20, blood pressure 116/54. HEENT: Not icteric. NECK: Supple. CHEST: Clear bilaterally. HEART: S1 and S2, no murmur. ABDOMEN: Soft. Bowel sounds present. No tenderness. EXTREMITIES: No edema. SKIN: No rash. IMPRESSION: 1. Gram-negative sepsis. 2. Pyelonephritis. RECOMMENDATIONS: Discontinue Azithromycin. Continue the Rocephin. Will add Levaquin or Cipro. Await cultures and sensitivity. Will check CBC. Will check chem panel. Agree with IV fluids. Further recommendations depending on clinical progress. Thank you for asking me to see this patient. Job#: [id number]
[2018-06-14] MEDS ORDERED: GUAIFENESIN 600MG/DEXTROMETHORPHAN 30MG TABSR PO SCH (17:00)
[2018-06-14] MEDS: TOLTERODINE TARTRATE 2 MG CAPCR PO SCH (17:05)
[2018-06-14] MEDS: CIPROFLOXACIN 400 MG/D5W 200ML 200 ML IV SCH (17:05)
[2018-06-14] MEDS: ACETAMINOPHEN 325 MG TAB PO PRN (18:00)
[2018-06-14 20:32] VITALS: BP 135/71
[2018-06-14] MEDS: SIMVASTATIN 20 MG TAB PO SCH (21:39)
[2018-06-14] MEDS: CEFTRIAXONE SOD 1 GM VIAL IV SCH (21:39)
[2018-06-14] MEDS: SERTRALINE HCL 100 MG TAB PO SCH (21:39)
[2018-06-14] MEDS: ZOLPIDEM TARTRATE 10 MG TAB PO SCH (21:39)
[2018-06-14 22:50] VITALS: BP 135/71
[2018-06-15 00:39] VITALS: BP 142/91
[2018-06-15] MEDS: IPRATROPIUM BROMIDE 0.02% 2.5 ML NEB NEB SCH ×6 (03:00→23:00)
[2018-06-15] MEDS: ALBUTEROL SULF 0.083% NEB SOLN 3 ML NEB NEB SCH ×2 (03:00→07:30)
[2018-06-15] MEDS: CIPROFLOXACIN 400 MG/D5W 200ML 200 ML IV SCH ×2 (04:24→16:30)
[2018-06-15 05:30] VITALS: BP 155/72
[2018-06-15 05:32] LABS: BASOPHILS % 0.3 % (0.0-1.0); EOSINOPHILS # (AUTO) 0.1 (0.0-0.4); EOSINOPHILS % 1.3 % (0.0-6.0); HEMATOCRIT 34.8 % (34.2-44.1); HEMOGLOBIN 11.3 g/dL (12.0-16.0); LYMPHOCYTES # (AUTO) 0.4 (1.0-3.2); LYMPHOCYTES % 5.9 % (18.0-39.1); MEAN CORPUSCULAR HEMOGLOBIN 30.5 pg (28-32); MEAN CORPUSCULAR HGB CONC 32.5 g/dL (31-35); MEAN CORPUSCULAR VOLUME 94.1 fL (81-99); MONOCYTES # (AUTO) 1.1 (0.2-0.8); MONOCYTES % 17.4 % (4.4-11.3); NEUTROPHILS # (AUTO) 4.6 (2.1-6.9); NEUTROPHILS % 74.6 % (38.7-80.0); PLATELET COUNT 60 x10e3/uL (140-360); RED CELL DISTRIBUTION WIDTH 14.3 % (11.7-14.4)
[2018-06-15] MEDS ORDERED: LEVOTHYROXINE SODIUM 125 MCG TAB PO SCH (06:00)
[2018-06-15 06:19] LABS: ANION GAP 12.8 mmol/L (8-16); CALCIUM 8.8 mg/dL (8.4-10.2); CREATININE, SERUM 1.41 mg/dL (0.57-1.11); MAGNESIUM 1.9 MG/DL (1.3-2.1); POTASSIUM 3.8 mmol/L (3.5-5.1)
[2018-06-15 06:31] LABS: FREE T4 (FREE THYROXINE) 0.83 ng/dL (0.9-1.8); THYROID STIMULATING HORMONE 8.087 uIU/mL (0.350-4.940)
[2018-06-15] MEDS ORDERED: NON-FORMULARY MEDICATION (Pantoprazole Sod (Protonix) 40 MG) PO SCH (07:30)
[2018-06-15] MEDS ORDERED: PANTOPRAZOLE SOD 40 MG TABEC PO SCH (07:30)
[2018-06-15] MEDS: PANTOPRAZOLE SOD 40 MG TABEC PO SCH (07:30)
[2018-06-15 07:51] VITALS: BP 141/88
[2018-06-15 07:53] LABS: FOLATE 7.2 ng/mL (7.0-15.4)
[2018-06-15] MEDS ORDERED: LEVOTHYROXINE SODIUM 50 MCG TAB PO ONE (08:00)
[2018-06-15] MEDS ORDERED: LEVOTHYROXINE SODIUM 25 MCG TABLET PO SCH (08:15)
[2018-06-15 08:27] LABS: FERRITIN 503.77 ng/mL (4.63-204.00)
[2018-06-15] MEDS ORDERED: ASPIRIN 81 MG CHEW TAB PO ONE (08:45)
[2018-06-15 09:00] VITALS: BP 141/88
[2018-06-15] MEDS ORDERED: LISINOPRIL 10 MG TAB PO SCH (09:00)
[2018-06-15] MEDS ORDERED: ASPIRIN 325 MG TAB PO SCH (09:00)
[2018-06-15] MEDS: GUAIFENESIN 600MG/DEXTROMETHORPHAN 30MG TABSR PO SCH ×2 (09:00→17:00)
[2018-06-15] MEDS ORDERED: QUETIAPINE FUMARATE 25 MG TAB PO SCH (09:00)
[2018-06-15] MEDS ORDERED: SERTRALINE HCL 200 MG PO SCH (09:00)
[2018-06-15] MEDS: METOPROLOL TARTRATE 25 MG TAB PO SCH ×2 (09:00→17:00)
[2018-06-15] MEDS ORDERED: NON-FORMULARY MEDICATION (Aripiprazole (Abilify) 2 MG) PO SCH (09:00)
[2018-06-15] MEDS: TOLTERODINE TARTRATE 2 MG CAPCR PO SCH ×2 (09:00→17:00)
[2018-06-15] MEDS: AMLODIPINE BESYLATE 5 MG TAB PO SCH (09:00)
[2018-06-15] MEDS: HYDROCHLOROTHIAZIDE 25 MG TAB PO SCH (09:00)
[2018-06-15] MEDS ORDERED: NON-FORMULARY MEDICATION ([Apixaban] 5 MG) PO SCH (09:00)
[2018-06-15] MEDS: LISINOPRIL 10 MG TAB PO SCH (09:00)
[2018-06-15] MEDS ORDERED: HYDROCHLOROTHIAZIDE 25 MG TAB PO SCH (09:00)
[2018-06-15] MEDS: APIXABAN 5 MG TABLET PO SCH (09:00)
[2018-06-15] MEDS: QUETIAPINE FUMARATE 25 MG TAB PO SCH (09:00)
[2018-06-15 09:10] LABS: CHOL/HDL RATIO 11.2 (3.0-3.6)
--- NOTE | 2018-06-15 09:28 | Consultation ---
DATE OF CONSULTATION: REQUESTING PHYSICIANS: Sterling Torres MD/Mary Ann Nuñez NP REASON FOR CONSULTATION: Elevated troponin. HISTORY OF PRESENT ILLNESS: Ms. Yuen is a 77-year-old lady with past medical history as listed below. Presented with abdominal pain, nausea, vomiting and diarrhea since Thursday. She was noted to have pyelonephritis and was admitted to the hospital. She is currently on antibiotics. Incidentally, she was noted to have elevated troponins, so I was consulted. Patient denies any chest pain, shortness of breath or palpitations. She apparently has had some cough. REVIEW OF SYMPTOMS CONSTITUTIONAL: Has some fatigue and weakness. HEENT: No headache, blurring of vision, seizure, syncope. CARDIOVASCULAR: No chest pain, dyspnea, orthopnea, PND. RESPIRATORY: Has some cough. No fever. GI: Had abdominal pain, nausea, vomiting and diarrhea. : No dysuria, frequency or incontinence. ALLERGIES: CODEINE AND TRAMADOL. MEDICATIONS: See list. PAST MEDICAL HISTORY 1. History of hypertension. 2. History of hypothyroidism. 3. History of PE. 4. History of IVC filter placement. 5. History of GERD. 6. History of osteoporosis. 7. History of CKD. 8. History of neuropathy. 9. History of hypothyroidism. 10. History of hyperlipidemia. 11. History of depression. SOCIAL HISTORY: Does not smoke or drink. FAMILY HISTORY: Noncontributory. PAST SURGICAL HISTORY 1. History of . 2. History left femur ORIF. PHYSICAL EXAMINATION VITALS: Heart rate is 107. Blood pressure 155/72. Respiratory rate is 18. Temperature is 100.3. GENERAL: Thin-built lady. Awake, alert, not in any obvious distress. HEENT: Atraumatic. NECK: No JVD, bruit, thyromegaly, lymphadenopathy. CARDIOVASCULAR: First and second heart sounds heard. No murmurs, rubs or gallops appreciated. CHEST: Clear to auscultation. ABDOMEN: Soft, nontender. EXTREMITIES: No edema. LABS: WBC 6.2. Hemoglobin is 11.3. Hematocrit 34.8. Platelets are 60. Sodium 134, potassium 3.8, chloride 105, bicarb 20. BUN is 21, creatinine 1.4. Troponin is 0.04, 0.018 and 0.74. IMPRESSION 1. Pyelonephritis/sepsis. 2. History of hypertension. 3. History of hypothyroidism. 4. History of pulmonary embolism. 5. History of inferior vena cava filter. 6. History of depression. 7. Thrombocytopenia. 8. Chronic kidney disease. 9. Hypokalemia. PLAN 1. The patient's troponins are borderline elevated. Could be secondary to her sepsis. Patient is, however, essentially asymptomatic from cardiac point of view. Has no chest pain or shortness of breath. Get EKG. Get echocardiogram to assess LV function and valvular function. Continue with antibiotics. 2. Add baby aspirin to her regimen. 3. Check lipids. 4. Further cardiac workup depending on clinical course. As always, appreciate and thank you very much for your referrals. Job#: [id number]
[2018-06-15] MEDS: LEVALBUTEROL HCL SOLN NEBU 1.25 MG/3 ML NEB INH SCH ×5 (10:00→23:00)
[2018-06-15] MEDS ORDERED: LORAZEPAM INJ 2 MG/ML VIAL IV PRN (11:45)
[2018-06-15] MEDS: MEROPENEM 500 MG VIAL IV SCH ×2 (14:00→21:18)
[2018-06-15] MEDS ORDERED: MEROPENEM 500MG 500 MG in SODIUM CHLORIDE 0.9% 50ML 50 ML IV SCH (14:00)
[2018-06-15 16:03] VITALS: BP 163/75
[2018-06-15] MEDS: FERROUS SULFATE 325 MG TAB PO SCH (17:30)
[2018-06-15 20:00] VITALS: BP 160/93
[2018-06-15] MEDS: ZOLPIDEM TARTRATE 10 MG TAB PO SCH (20:31)
[2018-06-15] MEDS: SIMVASTATIN 20 MG TAB PO SCH (20:31)
[2018-06-15] MEDS: SERTRALINE HCL 100 MG TAB PO SCH (20:31)
[2018-06-16] VITALS (8 sets, daily range): BP systolic 118–178; BP diastolic 65–85
[2018-06-16] MEDS: CIPROFLOXACIN 400 MG/D5W 200ML 200 ML IV SCH (04:26)
[2018-06-16 04:38] LABS: BASOPHILS % 0.6 % (0.0-1.0); EOSINOPHILS # (AUTO) 0.1 (0.0-0.4); EOSINOPHILS % 1.5 % (0.0-6.0); HEMOGLOBIN 11.7 g/dL (12.0-16.0); LYMPHOCYTES # (AUTO) 0.8 (1.0-3.2); LYMPHOCYTES % 11.4 % (18.0-39.1); MEAN CORPUSCULAR HEMOGLOBIN 30.3 pg (28-32); MEAN CORPUSCULAR HGB CONC 32.5 g/dL (31-35); MEAN CORPUSCULAR VOLUME 93.3 fL (81-99); MONOCYTES # (AUTO) 1.5 (0.2-0.8); MONOCYTES % 20.2 % (4.4-11.3); NEUTROPHILS # (AUTO) 4.8 (2.1-6.9); NEUTROPHILS % 65.7 % (38.7-80.0); PLATELET COUNT 69 x10e3/uL (140-360); RED BLOOD COUNT 3.86 x10e6/uL (3.6-5.1); RED CELL DISTRIBUTION WIDTH 14.2 % (11.7-14.4)
[2018-06-16 05:01] LABS: ANION GAP 16.8 mmol/L (8-16); CALCIUM 9.1 mg/dL (8.4-10.2); CREATININE, SERUM 1.24 mg/dL (0.57-1.11); MAGNESIUM 1.9 MG/DL (1.3-2.1); POTASSIUM 3.8 mmol/L (3.5-5.1)
[2018-06-16] MEDS: MEROPENEM 500 MG VIAL IV SCH ×3 (05:04→21:45)
[2018-06-16] MEDS: LEVOTHYROXINE SODIUM 100 MCG TAB PO SCH (05:04)
[2018-06-16 06:00] LABS: CREATINE KINASE MB 3.4 ng/mL (0-5.0)
[2018-06-16] MEDS: LEVALBUTEROL HCL SOLN NEBU 1.25 MG/3 ML NEB INH SCH ×5 (07:00→23:00)
[2018-06-16] MEDS: IPRATROPIUM BROMIDE 0.02% 2.5 ML NEB NEB SCH ×5 (07:00→23:00)
[2018-06-16] MEDS: PANTOPRAZOLE SOD 40 MG TABEC PO SCH (09:37)
[2018-06-16] MEDS: ASPIRIN 81 MG ENTERIC COATED PO SCH (09:38)
[2018-06-16] MEDS: METOPROLOL TARTRATE 25 MG TAB PO SCH ×2 (09:38→17:42)
[2018-06-16] MEDS: ASCORBIC ACID 500 MG TAB PO SCH ×2 (09:38→17:00)
[2018-06-16] MEDS: LISINOPRIL 10 MG TAB PO SCH (09:38)
[2018-06-16] MEDS: TOLTERODINE TARTRATE 2 MG CAPCR PO SCH ×2 (09:38→17:00)
[2018-06-16] MEDS: FERROUS SULFATE 325 MG TAB PO SCH ×2 (09:38→17:00)
[2018-06-16] MEDS: APIXABAN 5 MG TABLET PO SCH (09:38)
[2018-06-16] MEDS: GUAIFENESIN 600MG/DEXTROMETHORPHAN 30MG TABSR PO SCH ×2 (09:38→17:00)
[2018-06-16] MEDS: QUETIAPINE FUMARATE 25 MG TAB PO SCH (09:38)
[2018-06-16] MEDS: AMLODIPINE BESYLATE 5 MG TAB PO SCH (09:38)
[2018-06-16] MEDS: HYDROCHLOROTHIAZIDE 25 MG TAB PO SCH (09:38)
--- NOTE | 2018-06-16 11:36 | Diagnostic Imaging Report ---
Exam: Head CT without contrast History: Weakness Comparison studies: Head CT 11/02/2017 Technique: Axial images were obtained from the skull base to the vertex. Coronal and sagittal images reconstructed from the axial data. Dose modulation, iterative reconstruction, and/or weight based adjustment of the mA/kV was utilized to reduce the radiation dose to as low as reasonably achievable. Radiation dose: Total DLP: 921 mGy*cm. Estimated effective dose: DLP x 0.015 Intravenous contrast: None Findings: Scalp: No abnormalities. Bones: No fractures or aggressive blastic or lytic lesions. Brain sulci: Mildly prominent Ventricles: Mild compensatory dilatation. No hydrocephalus. Extra-axial spaces: No masses, no fluid collection. Parenchyma: No mass, acute hemorrhage or acute or old vascular insult. Confluent hypodensity in the supratentorial white matter are nonspecific but most compatible with chronic microvascular ischemic changes. Sellar/suprasellar region: No abnormalities. Craniocervical junction: Patent foramen magnum. No Chiari one malformation. Incidental findings: Benign small exostosis along the outer table the right frontal calvarium. Atherosclerotic calcifications in the carotid siphons and in the right intradural vertebral artery and basilar artery. Intraocular lens or placement related to previous cataract surgery. IMPRESSION: No acute abnormalities. Chronic findings: 1. Mild generalized volume loss. 2. Severe supratentorial microvascular ischemic changes. Signed by: Dr. Janes Lorenz M.D. on 06/16/2018 11:33 AM
[2018-06-16] MEDS ORDERED: SODIUM CHLORIDE 0.9% 250ML 250 ML ONE (14:12)
[2018-06-16] MEDS: ACETAMINOPHEN 325 MG TAB PO PRN (14:45)
[2018-06-16 15:08] LABS: BASOPHILS % 0.6 % (0.0-1.0); EOSINOPHILS # (AUTO) 0.2 (0.0-0.4); EOSINOPHILS % 2.7 % (0.0-6.0); HEMATOCRIT 35.6 % (34.2-44.1); HEMOGLOBIN 11.6 g/dL (12.0-16.0); LYMPHOCYTES # (AUTO) 0.8 (1.0-3.2); LYMPHOCYTES % 11.7 % (18.0-39.1); MEAN CORPUSCULAR HEMOGLOBIN 30.1 pg (28-32); MEAN CORPUSCULAR HGB CONC 32.6 g/dL (31-35); MEAN CORPUSCULAR VOLUME 92.5 fL (81-99); MONOCYTES # (AUTO) 1.3 (0.2-0.8); MONOCYTES % 18.8 % (4.4-11.3); NEUTROPHILS # (AUTO) 4.4 (2.1-6.9); NEUTROPHILS % 65.8 % (38.7-80.0); RED BLOOD COUNT 3.85 x10e6/uL (3.6-5.1); RED CELL DISTRIBUTION WIDTH 14.3 % (11.7-14.4)
[2018-06-16 15:09] LABS: PLATELET COUNT 78 x10e3/uL (140-360)
[2018-06-16 15:30] LABS: ANION GAP 13.9 mmol/L (8-16); CALCIUM 9.2 mg/dL (8.4-10.2); CREATININE, SERUM 1.22 mg/dL (0.57-1.11); POTASSIUM 3.9 mmol/L (3.5-5.1)
[2018-06-16] MEDS: SERTRALINE HCL 100 MG TAB PO SCH (21:45)
[2018-06-16] MEDS: ZOLPIDEM TARTRATE 10 MG TAB PO SCH (21:45)
[2018-06-16] MEDS: SIMVASTATIN 20 MG TAB PO SCH (21:45)
[2018-06-17] VITALS (7 sets, daily range): BP systolic 123–157; BP diastolic 69–85
[2018-06-17] MEDS: IPRATROPIUM BROMIDE 0.02% 2.5 ML NEB NEB SCH ×6 (03:00→23:00)
[2018-06-17] MEDS: LEVALBUTEROL HCL SOLN NEBU 1.25 MG/3 ML NEB INH SCH ×6 (03:00→23:00)
[2018-06-17 04:12] LABS: BASOPHILS % 0.5 % (0.0-1.0); EOSINOPHILS # (AUTO) 0.3 (0.0-0.4); EOSINOPHILS % 4.1 % (0.0-6.0); HEMATOCRIT 35.1 % (34.2-44.1); HEMOGLOBIN 11.5 g/dL (12.0-16.0); LYMPHOCYTES % 16.7 % (18.0-39.1); MEAN CORPUSCULAR HEMOGLOBIN 30.3 pg (28-32); MEAN CORPUSCULAR HGB CONC 32.8 g/dL (31-35); MEAN CORPUSCULAR VOLUME 92.6 fL (81-99); MONOCYTES # (AUTO) 1.2 (0.2-0.8); MONOCYTES % 19.3 % (4.4-11.3); NEUTROPHILS # (AUTO) 3.6 (2.1-6.9); NEUTROPHILS % 58.9 % (38.7-80.0); PLATELET COUNT 85 x10e3/uL (140-360); RED BLOOD COUNT 3.79 x10e6/uL (3.6-5.1); RED CELL DISTRIBUTION WIDTH 14.2 % (11.7-14.4)
[2018-06-17 04:35] LABS: ANION GAP 16.7 mmol/L (8-16); CALCIUM 9.1 mg/dL (8.4-10.2); CREATININE, SERUM 1.32 mg/dL (0.57-1.11); MAGNESIUM 2.3 MG/DL (1.3-2.1); POTASSIUM 3.7 mmol/L (3.5-5.1)
[2018-06-17] MEDS ORDERED: CYANOCOBALAMIN INJ 1,000 MCG/ML VIAL IM ONE (05:00)
[2018-06-17] MEDS: ACETAMINOPHEN 325 MG TAB PO PRN ×2 (06:00→15:10)
[2018-06-17] MEDS: MEROPENEM 500 MG VIAL IV SCH ×3 (06:00→22:30)
[2018-06-17] MEDS: LEVOTHYROXINE SODIUM 100 MCG TAB PO SCH (06:00)
[2018-06-17] MEDS ORDERED: DEXTROSE 50% SYRINGE 50 ML IV ONE (07:34)
[2018-06-17] MEDS: FERROUS SULFATE 325 MG TAB PO SCH ×2 (08:00→18:14)
[2018-06-17] MEDS: QUETIAPINE FUMARATE 25 MG TAB PO SCH (09:00)
[2018-06-17] MEDS: ASCORBIC ACID 500 MG TAB PO SCH ×2 (09:00→18:14)
[2018-06-17] MEDS: HYDROCHLOROTHIAZIDE 25 MG TAB PO SCH (09:00)
[2018-06-17] MEDS: CYANOCOBALAMIN INJ 1,000 MCG/ML VIAL IM SCH (09:00)
[2018-06-17] MEDS: IRON SUCROSE 100 MG in SODIUM CHLORIDE 0.9% 100 ML 100 ML IV SCH (09:00)
[2018-06-17] MEDS: LISINOPRIL 10 MG TAB PO SCH (09:00)
[2018-06-17] MEDS: TOLTERODINE TARTRATE 2 MG CAPCR PO SCH ×2 (09:00→18:14)
[2018-06-17] MEDS: AMLODIPINE BESYLATE 5 MG TAB PO SCH (09:00)
[2018-06-17] MEDS: ASPIRIN 81 MG ENTERIC COATED PO SCH (09:00)
[2018-06-17] MEDS: GUAIFENESIN 600MG/DEXTROMETHORPHAN 30MG TABSR PO SCH ×2 (09:00→18:14)
[2018-06-17] MEDS: APIXABAN 5 MG TABLET PO SCH (09:00)
[2018-06-17] MEDS: METOPROLOL TARTRATE 25 MG TAB PO SCH ×2 (09:00→18:16)
[2018-06-17] MEDS ORDERED: SODIUM CHLORIDE 0.9% 1000ML 1,000 ML IV ONE (10:00)
[2018-06-17] MEDS ORDERED: GUAIFENESIN 200 MG/10 ML UDC PO PRN (11:45)
[2018-06-17] MEDS: PANTOPRAZOLE SOD 40 MG TABEC PO SCH (11:52)
--- NOTE | 2018-06-17 15:45 | Diagnostic Imaging Report ---
PROCEDURE: X-RAY MODIFIED BARIUM SWALLOW COMPARISON: None. INDICATION: Aspiration DISCUSSION: Fluoroscopic examination was performed in conjunction with speech pathology during swallowing a variety of thin and thick liquid consistencies. Pyriform sinus residue is noted which subsequently clears. No penetration or aspiration is demonstrated. CONCLUSION: No penetration or aspiration is demonstrated. Please refer to the speech pathology report for further details. Signed by: Dr. Connor Lea MD on 06/17/2018 3:41 PM
[2018-06-17 19:24] LABS: CREATININE, SERUM 1.4 mg/dL (0.57-1.11)
[2018-06-17] MEDS ORDERED: SODIUM CHLORIDE 0.9% 1000ML 1,000 ML IV SCH (20:30)
[2018-06-17] MEDS: SERTRALINE HCL 100 MG TAB PO SCH (20:44)
[2018-06-17] MEDS: SIMVASTATIN 20 MG TAB PO SCH (20:44)
[2018-06-17] MEDS: ZOLPIDEM TARTRATE 10 MG TAB PO SCH (20:44)
[2018-06-18] VITALS: BP 141/80
[2018-06-18] MEDS: ACETAMINOPHEN 325 MG TAB PO PRN ×2 (00:17→14:03)
[2018-06-18] MEDS: IPRATROPIUM BROMIDE 0.02% 2.5 ML NEB NEB SCH ×4 (03:00→15:00)
[2018-06-18] MEDS: LEVALBUTEROL HCL SOLN NEBU 1.25 MG/3 ML NEB INH SCH ×4 (03:00→15:00)
[2018-06-18 04:00] VITALS: BP 141/67
[2018-06-18 04:23] LABS: BASOPHILS # (AUTO) 0.1 (0.0-0.1); BASOPHILS % 0.7 % (0.0-1.0); EOSINOPHILS # (AUTO) 0.4 (0.0-0.4); HEMATOCRIT 32.9 % (34.2-44.1); LYMPHOCYTES # (AUTO) 1.5 (1.0-3.2); LYMPHOCYTES % 20.7 % (18.0-39.1); MEAN CORPUSCULAR HEMOGLOBIN 30.3 pg (28-32); MEAN CORPUSCULAR HGB CONC 33.4 g/dL (31-35); MEAN CORPUSCULAR VOLUME 90.6 fL (81-99); MONOCYTES # (AUTO) 1.3 (0.2-0.8); MONOCYTES % 18.9 % (4.4-11.3); NEUTROPHILS # (AUTO) 3.8 (2.1-6.9); NEUTROPHILS % 54.1 % (38.7-80.0); PLATELET COUNT 101 x10e3/uL (140-360); RED BLOOD COUNT 3.63 x10e6/uL (3.6-5.1); RED CELL DISTRIBUTION WIDTH 14.1 % (11.7-14.4)
[2018-06-18 04:45] LABS: ANION GAP 14.6 mmol/L (8-16); CALCIUM 8.7 mg/dL (8.4-10.2); CREATININE, SERUM 1.26 mg/dL (0.57-1.11); MAGNESIUM 2.1 MG/DL (1.3-2.1); POTASSIUM 3.6 mmol/L (3.5-5.1)
[2018-06-18] MEDS: LEVOTHYROXINE SODIUM 100 MCG TAB PO SCH (05:53)
[2018-06-18] MEDS: MEROPENEM 500 MG VIAL IV SCH ×2 (05:53→14:02)
[2018-06-18 07:32] VITALS: BP 126/71
[2018-06-18 08:00] VITALS: BP 126/71
[2018-06-18] MEDS ORDERED: NORVASC5 MG PO (08:34)
[2018-06-18] MEDS ORDERED: SYNTHROID100 MCG PO (08:34)
[2018-06-18] MEDS ORDERED: AMLODIPINE BESYLATE 10 MG TAB PO SCH (09:00)
[2018-06-18] MEDS ORDERED: GUAIFENESIN 600MG/DEXTROMETHORPHAN 30MG TABSR PO SCH (09:00)
[2018-06-18] MEDS ORDERED: LORATADINE 10 MG TAB PO SCH (09:00)
[2018-06-18] MEDS: PANTOPRAZOLE SOD 40 MG TABEC PO SCH (09:11)
[2018-06-18] MEDS: CYANOCOBALAMIN INJ 1,000 MCG/ML VIAL IM SCH (09:11)
[2018-06-18] MEDS: FERROUS SULFATE 325 MG TAB PO SCH (09:11)
[2018-06-18] MEDS: METOPROLOL TARTRATE 25 MG TAB PO SCH (09:12)
[2018-06-18] MEDS: TOLTERODINE TARTRATE 2 MG CAPCR PO SCH (09:12)
[2018-06-18] MEDS: ASPIRIN 81 MG ENTERIC COATED PO SCH (09:12)
[2018-06-18] MEDS: GUAIFENESIN 600MG/DEXTROMETHORPHAN 30MG TABSR PO SCH (09:12)
[2018-06-18] MEDS: APIXABAN 5 MG TABLET PO SCH (09:12)
[2018-06-18] MEDS: HYDROCHLOROTHIAZIDE 25 MG TAB PO SCH (09:12)
[2018-06-18] MEDS: QUETIAPINE FUMARATE 25 MG TAB PO SCH (09:13)
[2018-06-18] MEDS: LISINOPRIL 10 MG TAB PO SCH (09:13)
[2018-06-18] MEDS: ASCORBIC ACID 500 MG TAB PO SCH (09:13)
[2018-06-18] MEDS: IRON SUCROSE 100 MG in SODIUM CHLORIDE 0.9% 100 ML 100 ML IV SCH (09:20)
--- NOTE | 2018-06-18 09:35 | Diagnostic Imaging Report ---
PROCEDURE: A single AP view of the chest. COMPARISON: Chest radiograph 06/13/18. INDICATIONS: PNEUMONIA FINDINGS: Lines/tubes: None. Lungs: Low lung volumes. Mild patchy bibasilar opacities. No evidence of lobar consolidation or pulmonary edema. Pleura: There is no pleural effusion or pneumothorax. Heart and mediastinum: The cardiomediastinal silhouette is unremarkable. Bones: No acute bony abnormality. IMPRESSION: Low lung volumes with mild patchy bibasilar opacities, more likely atelectasis than pneumonia. No evidence of lobar consolidation. Dictated by: SERENA RIGGS M.D. on 06/18/2018 at 9:44 Electronically approved by: SERENA RIGGS M.D. on 06/18/2018 at 9:44
--- NOTE | 2018-06-18 11:58 | Diagnostic Imaging Report ---
Examination: Single AP view of the chest. COMPARISON: June 18, 2018 INDICATION: Line placement DISCUSSION: Lines/tubes: Right PICC line placement with tip overlying the superior vena cava. Lungs: The lungs are well inflated and clear. No pneumonia or pulmonary edema. Pleura: No pleural effusion or pneumothorax. Heart and mediastinum: The heart and the mediastinum are unremarkable. Bones and soft tissues: No acute bony abnormalities. IMPRESSION: 1. Right PICC line with tip overlying the superior vena cava. Signed by: Dr. Lobo Banerjee M.D. on 06/18/2018 11:55 AM
[2018-06-18 12:06] VITALS: BP 134/83
[2018-06-18] MEDS ORDERED: MERREM500 MG IV (15:04)
[2018-06-18 16:00] VITALS: BP 121/78
--- NOTE | 2018-06-18 17:03 | Discharge Summary ---
ADMISSION DIAGNOSES 1. Pyelonephritis with sepsis. 2. Pneumonia. 3. Hypertension. 4. Hypothyroidism. 5. Hyperlipidemia. 6. Overactive bladder. 7. Depression. 8. Insomnia. 9. History of pulmonary embolism with IVC filter. 10. Diarrhea. 11. Hypokalemia. 12. Nausea and vomiting. DISCHARGE DIAGNOSES 1. Pyelonephritis with sepsis. 2. Pneumonia. 3. Hypertension. 4. Hypothyroidism. 5. Hyperlipidemia. 6. Overactive bladder. 7. Depression. 8. Insomnia. 9. History of pulmonary embolism with IVC filter. 10. Diarrhea. 11. Hypokalemia. 12. Nausea and vomiting. 13. Ruled out gastrointestinal bleed. 14. Ruled out Clostridium difficile. 15. Bacteremia secondary to extended-spectrum beta lactamase. 16. Urinary tract infection with extended-spectrum beta lactamase present on admission. HISTORY: The patient has a history of hypertension, depression, GERD, overactive bladder, insomnia, hypothyroidism, hyperlipidemia, chronic kidney disease 3, IVC filter secondary to PE, osteoporosis, neuropathy. PAST SURGICAL HISTORY: The patient has a history of and left femur ORIF. FAMILY HISTORY: The patient's daughter had a stroke. SOCIAL HISTORY: The patient denies alcohol, tobacco and illicit drug use. HOSPITAL COURSE: A 77-year-old female who complains of nausea and vomiting, diarrhea and abdominal pain in all 4 quadrants that began Thursday. She denies fever, bright red blood per rectum and black stools. She also complains of intermittent dry cough over the last couple of weeks. She denies dysuria, hematuria. She was able to tolerate breakfast on admission and is feeling much better after IV antibiotics started. On admission, she was getting Rocephin and Zithromax. EKG showed sinus tachycardia. Echo showed an EF of 50% with mild MR and trace TR. Chest x-ray showed no acute cardiopulmonary disease. CT of the abdomen showed nonspecific left perinephric stranding which can be seen with pyelonephritis in a proper clinical setting and mild bibasilar opacity, favor of aspiration or infection. CT of the brain was negative. Modified barium swallow showed no penetration or aspiration demonstrated. Urine culture came back positive for ESBL which was present on admission and ESBL bacteremia also present on admission. The patient was changed to IV Merrem per infectious disease. She will discharge home and follow up with him for 2 additional weeks for IV Merrem at home. She refuses penitentiary facility placement. C. diff. was negative. Stool for blood was also negative. The patient tolerating diet well. The patient had a PICC line placed and arranged IV antibiotics at infectious disease office. She will discharge home on regular home medicines plus an increased dose of Norvasc and levothyroxine 150 daily. The patient understands discharge instructions and agrees to plan. She has a walker at home and does not want physical therapy at home. Vital signs stable. The patient is afebrile. Dictated by: Mary Ann Nuñez NP ANDRIA LAWRENCE MD Job#: [id number]
== END 2018-06-18 17:11 | disposition home health service (06) | DRG 871 ==
LOC: ER 16:39 → ERHOLD 21:20 → MED/SURG2 22:07
PROVIDERS: ADMIT Internal Medicine; ATTEND Internal Medicine
PROC: 02HV33Z Insertion of Infusion Device into Superior Vena Cava, Percutaneous Approach (ICD-10-PCS; principal; 2018-06-18)
DX: A41.51 Sepsis due to Escherichia coli [E. coli] (principal); J15.9 Unspecified bacterial pneumonia; N10 Acute pyelonephritis; R19.7 Diarrhea, unspecified; E03.9 Hypothyroidism, unspecified; E78.5 Hyperlipidemia, unspecified; G47.00 Insomnia, unspecified; Z86.711 Personal history of pulmonary embolism; Z79.01 Long term (current) use of anticoagulants; F32.9 Major depressive disorder, single episode, unspecified; E87.6 Hypokalemia; Z88.5 Allergy status to narcotic agent; I12.9 Hypertensive chronic kidney disease with stage 1 through stage 4 chronic kidney disease, or unspecified chronic kidney disease; N18.9 Chronic kidney disease, unspecified; D69.6 Thrombocytopenia, unspecified; Z95.828 Presence of other vascular implants and grafts; N18.3 Chronic kidney disease, stage 3 (moderate); D64.9 Anemia, unspecified; N32.81 Overactive bladder; R41.82 Altered mental status, unspecified; E83.41 Hypermagnesemia; B96.20 Unspecified Escherichia coli [E. coli] as the cause of diseases classified elsewhere; Z16.12 Extended spectrum beta lactamase (ESBL) resistance; R51 Headache
CPT/HCPCS: 36415; 36569; 70450; 71045; 74176; 74230; 80048; 80053; 80061; 81001; 82140; 82150; 82270; 82550; 82553; 82565; 82607; 82728; 82746; 83036; 83540; 83605; 83690; 83735; 84439; 84443; 84466; 84484; 84520; 85025; 85045; 87040; 87071; 87086; 87186; 87205; 87493; 93005; 93306; 94640; 96361; 99284; J0360; J0456; J0696; J1756; J2060; J2185; J2270; J2405; J3420; J7030; J7050; J7799

== ENCOUNTER 2018-06-25 15:18 | Emergency (ER) | payer MEDICARE ==
[~2018-06-25] VITALS: Ht 170.2 cm; Wt 67.1 kg
[~2018-06-25 15:18] MED LIST changes: +MERREM500 MG IV; +SYNTHROID100 MCG PO
--- NOTE | 2018-06-25 16:44 | Diagnostic Imaging Report ---
History:Fell, hit head Comparison studies: Head CTs on 11/02/17 and 06/16/2018 Technique: Axial images were obtained from the skull base to the vertex. Coronal and sagittal images reconstructed from the axial data. Dose modulation, iterative reconstruction, and/or weight based adjustment of the mA/kV was utilized to reduce the radiation dose to as low as reasonably achievable. Intravenous contrast: None Findings: Scalp/skull: An acute midline parieto-occipital scalp hematoma is not associated with subcutaneous emphysema or with hyperdense foreign bodies. No underlying fractures. Extra-axial spaces: No masses. No fluid collections. Brain sulci: Moderately prominent. Ventricles: Moderate compensatory dilatation. No hydrocephalus. Parenchyma: Ill-defined, confluent hypodensities in the supratentorial white matter are small vessel ischemic changes. No masses, hemorrhage, acute or chronic cortical vascular insults. Sellar/suprasellar region: No abnormalities. Craniocervical junction: Patent foramen magnum. No Chiari one malformation. Incidental findings: Atherosclerotic calcifications in the carotid siphons . 2 mm sessile exostosis along the outer table of the frontal bone at midline focally projects into the scalp Impression: 1. Acute midline parieto-occipital scalp hematoma. No fractures. 2. No acute intracranial abnormalities. 3. No intracranial changes when compared to the previous head CT's. Chronic findings: 1. Moderate generalized volume loss. 2. Severe supratentorial white matter small vessel ischemic changes. Signed by: Dr. Raudel Denton M.D. on 06/25/2018 4:41 PM
--- NOTE | 2018-06-25 16:49 | Diagnostic Imaging Report ---
History: Fall, hit head Comparison studies: Cervical spine CT on 11/02/2017 Technique: Axial images were obtained through the cervical region.. Coronal and sagittal images reconstructed from the axial data. Dose modulation, iterative reconstruction, and/or weight based adjustment of the mA/kV was utilized to reduce the radiation dose to as low as reasonably achievable. Intravenous contrast: None Findings: Fractures: None. Soft tissues: No gross abnormalities. Atlantoaxial articulation: Intact. Alignment: Reversal of the usual lordosis is centered at C6. No scoliosis. Cervicomedullary junction: No abnormalities. The foramen magnum is patent. Vertebrae: No infection or neoplasm. Degenerative changes: Moderately degenerated discs from C3 to C6, is fused at C6-C7 mildly degenerated at C7 T1. Foraminal mild facet arthrosis from C2 to C5 on the right. Mild foraminal stenosis on the right from C3 to C7 due to uncoarthrosis. Degenerative spinal canal stenosis is moderate at C6-C7 a due to disc osteophyte complex IMPRESSION: 1. No acute abnormalities. No fractures. 2. Cannot adequately evaluate for ligament, spinal cord and or vascular abnormalities. 3. Chronic degenerative changes as described. 4. No changes when compared to the previous cervical spine CT. Signed by: Dr. Raudel Denton M.D. on 06/25/2018 4:46 PM
--- NOTE | 2018-06-25 16:59 | Diagnostic Imaging Report ---
Exam: ankle 3 views History: pain Comparison: None. Findings: Small cortical fracture of the distal fibula with soft tissue swelling. Small ankle effusion. No arthropathy. Impression: No acute osseous abnormality Small cortical fracture of the distal fibula with overlying swelling Signed by: Dr. Lobo Banerjee M.D. on 06/25/2018 4:55 PM
[2018-06-25 22:44] VITALS: BP 148/92
== END 2018-06-25 22:46 | disposition home or self-care (01) ==
LOC: ER 15:18
DX: R55 Syncope and collapse (principal); S82.875A Nondisplaced pilon fracture of left tibia, initial encounter for closed fracture; W01.0XXA Fall on same level from slipping, tripping and stumbling without subsequent striking against object, initial encounter; E78.5 Hyperlipidemia, unspecified; F32.9 Major depressive disorder, single episode, unspecified; I10 Essential (primary) hypertension; Z86.718 Personal history of other venous thrombosis and embolism
CPT/HCPCS: 70450; 72125; 99284

== ENCOUNTER 2019-01-26 15:16 | Emergency (ER) | payer MEDICARE ==
[~2019-01-26] VITALS: Ht 170.2 cm; Wt 67.1 kg
[2019-01-26 17:00] LABS: BASOPHILS # (AUTO) 0.1 (0.0-0.1); BASOPHILS % 0.6 % (0.0-1.0); EOSINOPHILS # (AUTO) 0.2 (0.0-0.4); HEMATOCRIT 36.6 % (34.2-44.1); HEMOGLOBIN 12.2 g/dL (12.0-16.0); LYMPHOCYTES # (AUTO) 1.7 (1.0-3.2); LYMPHOCYTES % 19.5 % (18.0-39.1); MEAN CORPUSCULAR HEMOGLOBIN 30.9 pg (28-32); MEAN CORPUSCULAR HGB CONC 33.3 g/dL (31-35); MEAN CORPUSCULAR VOLUME 92.7 fL (81-99); MONOCYTES # (AUTO) 0.8 (0.2-0.8); MONOCYTES % 9.5 % (4.4-11.3); NEUTROPHILS # (AUTO) 5.9 (2.1-6.9); NEUTROPHILS % 68.1 % (38.7-80.0); PLATELET COUNT 105 x10e3/uL (140-360); RED BLOOD COUNT 3.95 x10e6/uL (3.6-5.1); RED CELL DISTRIBUTION WIDTH 13.2 % (11.7-14.4)
[2019-01-26 17:16] LABS: ALBUMIN 3.9 g/dL (3.5-5.0); ALBUMIN/GLOBULIN RATIO 1.1 (0.8-2.0); ANION GAP 10.2 mmol/L (8-16); CALCIUM 10.2 mg/dL (8.4-10.2); CREATININE, SERUM 1.2 mg/dL (0.57-1.11); POTASSIUM 4.2 mmol/L (3.5-5.1)
[2019-01-26 17:23] LABS: CREATINE KINASE MB 1.2 ng/mL (0-5.0)
[2019-01-26 17:31] LABS: B-TYPE NATRIURETIC PEPTIDE2 244.3 pg/mL (0-100)
--- NOTE | 2019-01-26 17:44 | Diagnostic Imaging Report ---
EXAM: CHEST 2 VIEWS, PA and lateral DATE: 01/26/2019 Time stamp on exam: 5:10 PM INDICATION: Cough COMPARISON: 06/18/2018 FINDINGS: LINES/TUBES: None LUNGS: No consolidations or edema. PLEURA: No effusions or pneumothorax. HEART AND MEDIASTINUM: Normal size and contour. Tortuous aorta. BONES AND SOFT TISSUES: No acute findings. An IVC filter is noted on the lateral view below the diaphragm. IMPRESSION: No acute thoracic abnormality. Signed by: Dr. Hal Alvarez DO on 01/26/2019 5:40 PM
[2019-01-26 18:35] VITALS: BP 170/86
== END 2019-01-26 18:50 | disposition home or self-care (01) ==
LOC: ER 15:16
DX: J20.9 Acute bronchitis, unspecified (principal); L03.114 Cellulitis of left upper limb; Z88.5 Allergy status to narcotic agent; I10 Essential (primary) hypertension; Z86.718 Personal history of other venous thrombosis and embolism
CPT/HCPCS: 36415; 71046; 80053; 82550; 82553; 83605; 83880; 84484; 85025; 87040; 99284

== ENCOUNTER 2019-02-01 13:49 | Emergency (ER) | payer MEDICARE ==
[~2019-02-01] VITALS: Ht 170.2 cm; Wt 67.1 kg
[2019-02-01] MEDS ORDERED: TETANUS/DIPHTHERIA TOX ADULT 0.5 ML SYR IM ONE (14:15)
[2019-02-01] MEDS ORDERED: LIDOCAINE 1% W/EPINEPHRINE 20 ML VIAL ONE (15:07)
--- NOTE | 2019-02-01 15:20 | Diagnostic Imaging Report ---
Exam: Head and cervical spine CTs History: Trauma, fall, pain Comparison studies: Head and cervical spine CT 06/25/2018. Technique: Axial images were obtained from the brain and cervical spine. Coronal and sagittal images reconstructed from the axial data. Dose modulation, iterative reconstruction, and/or weight based adjustment of the mA/kV was utilized to reduce the radiation dose to as low as reasonably achievable. Intravenous contrast: None Findings: Head CT: Scalp: Right parietal scalp laceration hematoma. No retained hyperdense foreign body. Bones: No fractures or destructive blastic or lytic lesions. Incidental small sessile osteoma along the outer table the right paramedian frontal calvarium. Extra-axial spaces: No masses. No fluid collections. Brain sulci: Moderately prominent. Ventricles: Moderate compensatory dilatation. No hydrocephalus. Parenchyma: No mass, acute hemorrhage or acute or chronic cortical insults. Confluent hypodensities in the supratentorial white matter are nonspecific but most compatible with chronic microvascular ischemic changes. There is a small chronic lacunar infarct in the left thalamus which was not visualized on the prior exams. Sellar/suprasellar region: No abnormalities. Craniocervical junction: The foramen magnum is patent. No Chiari one malformation. Cervical spine CT: Fractures: None. Soft tissues: No gross acute abnormalities. Atlantoaxial articulation: Intact. Alignment: Mild cervical kyphosis. Cervicomedullary junction: No abnormalities. The foramen magnum is patent. Vertebrae: No infection or neoplasm. Degenerative changes: Moderately degenerated disks from C3 to C6 and mildly degenerated disc at C2-C3 and from C7 to T2. The C6-C7 disc space is fused. Mild to moderate canal stenosis at C6-C7 due to a posterior osteophyte complex. Mild foraminal stenosis from C3 to C7 due to uncovertebral arthrosis and multilevel facet arthrosis. The right C3-C4 facets are fused. Incidental all mildly prominent anterior marginal osteophyte at C4-C5 and C5-C6. Incidental findings: Lens replacements for previous cataract surgery. Calcified atherosclerosis in the carotid bulbs and carotid siphons. Anatomical variant retropharyngeal course of the carotid arteries. 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 Right parietal scalp hematoma and laceration. No retained hyperdense foreign body or fracture. 2. No other changes from the prior head CT of 07/15/2018. 3. 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 4. Unchanged moderate generalized volume loss since of severe chronic microvascular ischemic changes. Cervical spine CT: 1. No acute abnormalities. 2. Multilevel degenerative changes as described. 3. No changes from the prior cervical spine CT of 06/25/2018. Cannot exclude ligament, spinal cord and or vascular abnormalities on the basis of this examination. Signed by: Dr. Janes Lorenz M.D. on 02/01/2019 3:17 PM
[2019-02-01] MEDS ORDERED: LIDOCAINE 1% W/EPINEPHRINE 20 ML VIAL INJ NR (15:30)
[2019-02-01 15:40] VITALS: BP 155/81
== END 2019-02-01 16:00 | disposition home or self-care (01) ==
LOC: ER 13:49
DX: S01.01XA Laceration without foreign body of scalp, initial encounter (principal); W18.30XA Fall on same level, unspecified, initial encounter; Y92.008 Other place in unspecified non-institutional (private) residence as the place of occurrence of the external cause; I10 Essential (primary) hypertension; Z86.718 Personal history of other venous thrombosis and embolism
CPT/HCPCS: 70450; 72125; 90714; 99283

== ENCOUNTER 2021-01-08 15:47 | Emergency (ER) | payer MEDICARE ==
[~2021-01-08] VITALS: Ht 170.2 cm; Wt 67.1 kg
[2021-01-08] MEDS ORDERED: METHYLPREDNISOLONE SOD SUCC 125 MG/2ML VIAL IM ONE (17:45)
[2021-01-08] MEDS ORDERED: KETOROLAC TROMETHAMINE 60 MG/2 ML VIAL IM ONE (17:45)
[2021-01-08] MEDS ORDERED: BACTRIM DS TAB1 EACH PO (17:48)
[2021-01-08] MEDS ORDERED: FLAGYL500 MG PO (17:48)
[2021-01-08 18:00] VITALS: BP 126/71
== END 2021-01-08 17:50 | disposition home or self-care (01) ==
LOC: ER 17:37
DX: R21 Rash and other nonspecific skin eruption (principal); L98.9 Disorder of the skin and subcutaneous tissue, unspecified; I10 Essential (primary) hypertension; E78.5 Hyperlipidemia, unspecified; K21.9 Gastro-esophageal reflux disease without esophagitis; E78.00 Pure hypercholesterolemia, unspecified; Z86.718 Personal history of other venous thrombosis and embolism
CPT/HCPCS: 99282

== ENCOUNTER 2021-01-11 12:12 | Emergency (ER) | payer MEDICARE ==
[~2021-01-11] VITALS: Ht 170.2 cm; Wt 67.1 kg
[~2021-01-11 12:12] MED LIST changes: +FLAGYL500 MG PO
== END 2021-01-11 13:09 | disposition home or self-care (01) ==
LOC: ER 12:32
DX: L52 Erythema nodosum (principal); T36.8X5A Adverse effect of other systemic antibiotics, initial encounter; Z88.5 Allergy status to narcotic agent
CPT/HCPCS: 99283

== ENCOUNTER 2021-06-18 11:09 | Emergency (ER) | payer MEDICARE, OTHER ==
[~2021-06-18] VITALS: Ht 170.2 cm; Wt 67.1 kg
[2021-06-18 13:52] LABS: BASOPHILS % 0.8 % (0.0-1.0); EOSINOPHILS # (AUTO) 0.2 (0.0-0.4); EOSINOPHILS % 4.4 % (0.0-6.0); HEMATOCRIT 29.6 % (34.2-44.1); HEMOGLOBIN 9.5 g/dL (12.0-16.0); LYMPHOCYTES # (AUTO) 1.3 (1.0-3.2); MEAN CORPUSCULAR HGB CONC 32.1 g/dL (31-35); MEAN CORPUSCULAR VOLUME 96.7 fL (81-99); NEUTROPHILS # (AUTO) 2.7 (2.1-6.9); NEUTROPHILS % 51.6 % (38.7-80.0); PLATELET COUNT 99 x10e3/uL (140-360); RED BLOOD COUNT 3.06 x10e6/uL (3.6-5.1); RED CELL DISTRIBUTION WIDTH 14.3 % (11.7-14.4)
[2021-06-18 13:59] LABS: INR 1.07; PROTHROMBIN TIME 14.8 seconds (11.9-14.5)
[2021-06-18 14:00] LABS: PARTIAL THROMBOPLASTIN TIME 29.2 seconds (23.8-35.5)
[2021-06-18 14:09] LABS: ALBUMIN 3.1 g/dL (3.5-5.0); ALBUMIN/GLOBULIN RATIO 0.9 (0.8-2.0); ANION GAP 12.4 mmol/L (8-16); CREATININE, SERUM 1.17 mg/dL (0.57-1.11); POTASSIUM 3.4 mmol/L (3.5-5.1)
[2021-06-18 14:13] LABS: CLARITY,URINE CLEAR (CLEAR); COLOR,URINE YELLOW (YELLOW); KETONES,URINE NEGATIVE (NEGATIVE); LEUKOCYTE ESTERASE ,URINE TRACE (NEGATIVE); NITRITE,URINE NEGATIVE (NEGATIVE); PROTEIN,URINE DIPSTICK TRACE (NEGATIVE); URINE UROBILINOGEN 0.2 mg/dL (0.2 - 1)
[2021-06-18 14:20] LABS: CREATINE KINASE MB 5.5 ng/mL (0-5.0)
[2021-06-18 14:33] LABS: WBC,URINE (MAN) 0-5 /HPF (0-5)
[2021-06-18 14:34] LABS: AMORPHOUS SEDIMENT,URINE MODERATE (FEW); BACTERIA,URINE FEW /HPF; EPITHELIAL CELLS,URINE FEW /LPF; RBC,URINE 0-5 /HPF (0-5)
[2021-06-18] MEDS ORDERED: ACETAMINOPHEN 325 MG TAB PO ONE (15:00)
[2021-06-18] MEDS ORDERED: LIDOCAINE 4% PATCH TP SCH (15:00)
== END 2021-06-18 15:50 | disposition home or self-care (01) ==
LOC: ER 11:19
DX: S51.812A Laceration without foreign body of left forearm, initial encounter (principal); M25.562 Pain in left knee; M79.672 Pain in left foot; W01.0XXA Fall on same level from slipping, tripping and stumbling without subsequent striking against object, initial encounter; Y93.01 Activity, walking, marching and hiking; Y92.008 Other place in unspecified non-institutional (private) residence as the place of occurrence of the external cause; I10 Essential (primary) hypertension; E78.5 Hyperlipidemia, unspecified; E78.00 Pure hypercholesterolemia, unspecified; K21.9 Gastro-esophageal reflux disease without esophagitis
CPT/HCPCS: 36415; 70450; 71045; 72125; 72170; 80053; 81001; 82550; 82553; 84484; 85025; 85610; 85730; 87086; 93005; 99284